=== PATIENT | male | born 1955 | race Caucasian/White ===

== ENCOUNTER 2016-12-11 14:53 | Inpatient (IN) | payer OTHER ==
[~2016-12-11] VITALS: Ht 170.2 cm; Wt 68.0 kg
[~2016-12-11 14:53] MED LIST: NAPROXEN500 M2 PO; PANTOPRAZOLE SO40 MG PO; PERCOCET 5-3251 EACH PO; TRAMADOL50 MG PO
--- NOTE | 2016-12-11 14:55 | NUR ---
PT BIBA FROM HOME FOR ALTERED MENTAL STATUS & ETOH USE WITH PERIODS OF APNEA. PT WAS AT THE BAR TODAY, DRANK WHISKEY, AND THEN DROVE HOME. 1 HOUR AFTER BEING HOME PT BEGAN TO C/O SOB. CALLED 911. UPON EMS ARRIVAL TO PT'S HOME PT WAS ALERT WITH PINPOINT PUPILS, AND PERIODS OF APNEA. PT RECEIVED INTRANASAL NARCAN WITH NO EFFECT. PT ADMITTED TO EMS THAT HE OCCASIONALLY SMOKES CRACK. PT ARRIVES UNREPONSIVE TO PAINFUL/VERBAL STIMULI. PT HAS PRE-HOSP TO [facility]. #2O EST TO . DR FUNEZ IN FOR EVAL UPON PT'S ARRIVAL TO ROOM. CHANGED INTO GOWN. PLACED ON MONITOR.
--- NOTE | 2016-12-11 15:00 | NUR ---
MEDICATED IV NARCAN PER EMAR WITH MINIMAL EFFECT. SECURITY AT BEDSIDE TO WAND PT AND PT'S BELONGINGS. AT BEDSIDE. PT OCCASSIONALY TALKING GARBLED SPEECH, SAYING "JUST LET ME SLEEP".
--- NOTE | 2016-12-11 15:12 | ED GENERAL ADULT ---
History of Present Illness General Chief Complaint: Altered Mental Status Stated Complaint: BIBA AMS Source: patient Exam Limitations: not alert/orientated, clinical condition, poor historian Vital Signs & Intake/Output Vital Signs & Intake/Output Vital Signs Date Time Temp Pulse Resp B/P B/P Pulse O2 O2 Flow FiO2 Mean Ox Delivery Rate 12/11 1830 98.0 76 16 114/76 12/11 1806 97 Room Air 12/11 1802 84 16 114/76 98 Room Air 12/11 1711 98.8 68 17 91/55 94 Room Air 12/11 1629 80 18 122/58 95 Nasal 2.0L Cannula 12/11 1535 95 Nasal 2.0L Cannula 12/11 1516 81 26 133/71 95 Nasal 3.0L Cannula 12/11 1454 98.7 78 16 157/81 96 Room Air Allergies Coded Allergies: venom-honey bee (bee venom (honey bee)) (ANAPHYLAXIS 12/11/16) morphine (VOMITING 11/05/15) Reconcile Medications Albuterol Sulfate (Proair Hfa) 90 MCG HFA.AER.AD 2 PUF INH AD PRN EMPHYSEMA ( Reported) Lisinopril 20 MG TABLET 1 TAB PO DAILY BP (Reported) Pantoprazole Sodium 40 MG TABLET.DR 1 TAB PO DAILY GI (Reported) Triage Nurses Notes Reviewed? yes Onset: Abrupt Duration: hour(s): Timing: recent history HPI: 12/11/16 4 pm This is a 61-year-old man who presents to the emergency department unresponsive. According to EMS and the patient's he was drinking at a bar today. He drove home and was intoxicated. Shortly after he became unresponsive. He did have miotic pupils and was given Narcan in the field. There is no focal weakness. He has intermittent periods of bradyapena. Says the symptoms were abrupt, the duration is really unknown, the severity significant; as his symptoms required him to come to the emergency department by ambulance. Past History Travel History Traveled to [place] past 21 day No Medical History Any Pertinent Medical History? see below for history Cardiovascular: hypertension, hyperlipidemia Gastrointestinal: GERD, peptic ulcer disease Surgical History Surgical History: non-contributory Psychosocial History Who do you live with Family Services at Home None What is your primary language [place] Tobacco Use: UN ETOH Use: 5 Illicit Drug Use: UTD Family History Hx Contributory? No Review of Systems Review of Systems Constitutional: Denies: fever. EENTM: Reports: no symptoms. Respiratory: Reports: see HPI. Cardiovascular: Denies: chest pain. GI: Reports: no symptoms. Genitourinary: Reports: no symptoms. Musculoskeletal: Reports: no symptoms. Skin: Reports: no symptoms. Neurological/Psychological: Reports: confusion. Hematologic/Endocrine: Denies: bruising, bleeding. Physical Exam Physical Exam General Appearance: well developed/nourished, RESPONDS TO PAIN Head: atraumatic Eyes: Bilateral: PERRL, EOMI. Ears, Nose, Throat: normal pharynx Neck: normal inspection, supple Respiratory: normal breath sounds, chest non-tender, BRADYPENA Cardiovascular: regular rate/rhythm Peripheral Pulses: 4+ radial (R), 4+ radial (L) Back: decreased range of motion Extremities: pedal edema Neurologic/Psych: RESPONDS TO PAIN Skin: intact, normal color, warm/dry Core Measures ACS in differential dx? No CVA/TIA Diagnosis: No Severe Sepsis Present: No Septic Shock Present: No Progress Differential Diagnoses I considered the following diagnoses in my evaluation of the patient: [Alcohol intoxication, substance abuse, TIA, CVA, sepsis] Plan of Care: Orders Procedure Date/time Status Heart Healthy Diet 12/12 B Active Patient Data 12/11 1915 Active Admit to inpatient 12/11 1848 Active Code Status 12/11 1848 Active CIWA 12/11 1830 Active Continuous Observation Monitor 12/11 1543 Active URINE DRUG SCREEN FOR ER ONLY 12/11 1515 Complete ACETOMINOPHEN 12/11 1515 Complete TROPONIN LEVEL 12/11 1515 Complete SALICYLATE 12/11 1515 Complete ETHANOL 12/11 1515 Complete COMPREHENSIVE METABOLIC PANEL 12/11 1515 Complete CBC WITHOUT DIFFERENTIAL 12/11 1515 Complete Intake & Output 12/11 1456 Active EKG 12/11 1454 Active Laboratory Tests 12/11/16 1630: Urine Opiates Screen < 100.00, Methadone Screen < 40, Barbiturate Screen < 60, Ur Phencyclidine Scrn < 6.00, Amphetamines Screen < 100, U Benzodiazepines Scrn 85, Urine Cocaine Screen > 1000 H, Urine Cannabis Screen 66.00 H 12/11/16 1520: Anion Gap 13, Estimated GFR 29 L, BUN/Creatinine Ratio 14.8, Glucose 94, Calcium 9.2, Total Bilirubin 0.3, AST 19, ALT 25, Alkaline Phosphatase 58, Troponin I < 0.01, Total Protein 6.7, Albumin 3.9, Globulin 2.8, Albumin/ Globulin Ratio 1.4, CBC w Diff NO MAN DIFF REQ, RBC 3.97 L, MCV 88.2, MCH 29.5, RDW 13.9, MPV 9.6, Gran % 63.7, Lymphocytes % 24.9, Monocytes % 8.2, Eosinophils % 2.5, Basophils % 0.7, Absolute Granulocytes 4.2, Absolute Lymphocytes 1.7, Absolute Monocytes 0.5, Absolute Eosinophils 0.2, Absolute Basophils 0, PUBS MCHC 33.5, Salicylates < 1.0, Acetaminophen < 10.0 L, Serum Alcohol 246.0 Initial ED EKG: NSR Prior EKG: unchanged Comments: PATIENT: SHANIQUE MORENO PRESENT AGE: 61 PATIENT ACCOUNT NO: [id number] : 56 LOCATION: [facility] ORDERING PHYSICIAN: VEL FUNEZ DO SERVICE DATE: 12/11/16 EXAM TYPE: CAT - CT HEAD WO IV CONTRAST EXAMINATION: CT HEAD WITHOUT CONTRAST CLINICAL INFORMATION: Altered mental status. COMPARISON: No relevant prior studies are available for comparison. TECHNIQUE: Contiguous axial imaging was performed from the skull base to vertex without intravenous administration of contrast. DLP: 879.77 mGy-cm FINDINGS: There is no evidence of acute intracranial hemorrhage or territorial infarction. No abnormal mass effect or midline shift is seen. Jerry to white matter differentiation is well preserved. No extra-axial fluid collections are identified. The ventricles are normal in size. There is mild prominence of the sulci. There is mild hypoattenuation of the periventricular white matter, which could represent chronic small vessel ischemic disease. The osseous structures and soft tissues are normal. The mastoid air cells and visualized portions of the paranasal sinuses are well aerated. IMPRESSION: 1. No acute intracranial hemorrhage or mass effect. 2. Mild prominence of the sulci and mild hypoattenuation of the periventricular white matter, which may represent chronic small vessel ischemic disease. If the patient's symptomatology continues an MRI scan could be considered if patient is an appropriate candidate and there are no contraindications to MRI. DICTATED BY: FARZANA DARLING MD DATE/TIME DICTATED:12/11/161532 RAC SPECIALIST:DEB DATE/TIME TRANSCRIBED:12/11/161532 CONFIDENTIAL, DO NOT COPY WITHOUT APPROPRIATE AUTHORIZATION. <Electronically signed in Other Vendor System> SIGNED BY: FARZANA DARLING MD 1544 Departure Departure Disposition: STILL A PATIENT Condition: Stable Clinical Impression Primary Impression: EL (acute kidney injury) Secondary Impressions: Altered mental status, TIA (transient ischemic attack) Referrals: TREY SPRAGUE,FABRICIO Espinosa (PCP/Family) Departure Forms: Customer Survey General Discharge Information Comments Patient was treated with IV fluids, METAL STAUS IMPROVED. Admission Note Spoke With: ANA RENDON MD Documentation of Exam: Documentation of any treatments & extenuating circumstances including Concerns Regarding Discharge (functional status, medication knowledge or non-compliance, living conditions, etc.) that warrant an admission rather than observation: [He needs admission for IV fluids, serial neuro exams, serial troponins, serial EKG, repeat kidney function] Critical Care Note Critical Care Note Critical Care Time: 30-74 min
--- NOTE | 2016-12-11 15:18 | NUR ---
REPORT HANDED OFF TO BERNARDINO WEBSTER.
--- NOTE | 2016-12-11 15:20 | NUR ---
REPORT RECIEVED FROM JENNIFER LEBRON. PATIENT TO CT SCAN OFF CM - OK PER DR. FUNEZ. KIMBERLY PEÑA ACCOMPANIED PATIENT.
--- NOTE | 2016-12-11 15:32 | NUR ---
PATIENT RETURNED FROM CT SCAN. 1 L NS INFUSING AT 500 ML/HR ORDERED. SITTER AT BEDSIDE
[2016-12-11 15:33] LABS: ABSOLUTE BASOPHIL COUNT 0 /CUMM (0.0-0.2); ABSOLUTE EOSINOPHIL COUNT 0.2 /CUMM (0.0-0.7); ABSOLUTE GRANULOCYTE CT 4.2 /CUMM (1.4-6.5); ABSOLUTE LYMPH COUNT 1.7 /CUMM (1.2-3.4); ABSOLUTE MONOCYTE COUNT 0.5 /CUMM (0.10-0.60); BASOPHIL % 0.7 % (0.0-2.0); EOSINOPHIL % 2.5 % (0-5); GRANULOCYTE % 63.7 % (42.2-75.2); MEAN CORPUSCULAR HGB 29.5 PG (27.0-31.0); MEAN CORPUSCULAR HGB CONC 33.5 G/DL (33.0-37.0); MEAN CORPUSCULAR VOLUME 88.2 FL (80.0-94.0); MEAN PLATELET VOLUME 9.6 FL (7.4-10.4); PLATELET COUNT 181 /CUMM (130-400); RBC DISTRIBUTION WIDTH 13.9 % (11.5-14.5); RED BLOOD CELL CT 3.97 /CUMM (4.70-6.10); WHITE BLOOD CELL COUNT 6.7 /CUMM (4.8-10.8)
--- NOTE | 2016-12-11 15:34 | NUR ---
1 BELONGINGS BAG GIVEN TO SECURITY, PATIENTS GLASSES IN BAG PATIENT'S WALLET GIVEN TO /SON, OK PER PT
--- NOTE | 2016-12-11 15:44 | CT SCAN REPORT ---
EXAMINATION: CT HEAD WITHOUT CONTRAST CLINICAL INFORMATION: Altered mental status. COMPARISON: No relevant prior studies are available for comparison. TECHNIQUE: Contiguous axial imaging was performed from the skull base to vertex without intravenous administration of contrast. DLP: 879.77 mGy-cm FINDINGS: There is no evidence of acute intracranial hemorrhage or territorial infarction. No abnormal mass effect or midline shift is seen. Jerry to white matter differentiation is well preserved. No extra-axial fluid collections are identified. The ventricles are normal in size. There is mild prominence of the sulci. There is mild hypoattenuation of the periventricular white matter, which could represent chronic small vessel ischemic disease. The osseous structures and soft tissues are normal. The mastoid air cells and visualized portions of the paranasal sinuses are well aerated. IMPRESSION: 1. No acute intracranial hemorrhage or mass effect. 2. Mild prominence of the sulci and mild hypoattenuation of the periventricular white matter, which may represent chronic small vessel ischemic disease. If the patient's symptomatology continues an MRI scan could be considered if patient is an appropriate candidate and there are no contraindications to MRI.
--- NOTE | 2016-12-11 15:55 | RADIOLOGY REPORT ---
EXAMINATION: XR CHEST PORTABLE CLINICAL INFORMATION: Altered mental status. COMPARISON: Multiple priors, most recent chest radiograph dated 11/05/2015. TECHNIQUE: Portable frontal view of the chest was obtained. FINDINGS: Mild bibasilar atelectasis. No focal airspace consolidation. No pleural effusion or pneumothorax. Stable cardiomediastinal silhouette. No acute osseous abnormality. IMPRESSION: Mild bibasilar atelectasis.
--- NOTE | 2016-12-11 16:20 | NUR ---
PT UNABLE TO GIVE URINE SAMPLE AT THIS TIME, MORE EASILY AROUSABLE. STATES WILL TRY AGAIN IN 15 MINS.
--- NOTE | 2016-12-11 16:42 | NUR ---
PT VOIDED 500 ML CLEAR URINE INTO URINAL. UTOX SENT WITH UA/CASTER HELPER TUBES REPORT GIVEN TO SAMUEL LEBRON, PT MOVED TO ROOM 2 WITH SITTER
--- NOTE | 2016-12-11 16:56 | NUR ---
DR FUNEZ IN ROOM TO REEVALUATE PATIENT. FAMILY CALLING FOR UPDATES AND MD INFORMED TO PROVIDE UPDATE
[2016-12-11] MEDS ORDERED: PROAIR HFA8.5 GM INH (17:18)
[2016-12-11] MEDS ORDERED: PANTOPRAZOLE SO40 M1 PO (17:18)
[2016-12-11] MEDS ORDERED: LISINOPRIL20 M1 PO (17:18)
--- NOTE | 2016-12-11 17:54 | NUR ---
DR FUNEZ IN ROOM FOR REEVAL AND TO DISCUSS PLAN
--- NOTE | 2016-12-11 18:04 | NUR ---
FOOD TRAY ORDERED PER PT REQUEST
--- NOTE | 2016-12-11 18:15 | NUR ---
PT GIVEN FOOD TRAY AND ICE WATER. REMAINS STABLE, OFFERS NO COMPLAINTS
[2016-12-11 18:30] VITALS: BP 114/76
--- NOTE | 2016-12-11 19:23 | NUR ---
ASSUMED CARE OF PT FROM BERNARDINO BAKER. 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 AWAITING TELE ADMISSION AT THIS TIME.
--- NOTE | 2016-12-11 20:02 | NUR ---
MOD PAGED REGARDING SITTER ORDER FOR ADMISSION
[2016-12-11 20:26] VITALS: BP 118/73
--- NOTE | 2016-12-11 20:36 | NUR ---
PT GOING TO ROOM 182-1.
--- NOTE | 2016-12-11 20:46 | NUR ---
HOUSE STAFF AT BEDSIDE FOR EVAL.
--- NOTE | 2016-12-11 21:03 | NUR ---
REPORT GIVEN TO BERNARDINO FUENTES
[2016-12-11 21:38] VITALS: BP 130/80
--- NOTE | 2016-12-11 22:10 | History & Physical ---
NEENA DESHPANDE 12/11/16 2209: General Information and HPI MD Statement: I have seen and personally examined SHANIQUE RAMOS and documented this H&P. The patient is a 61 year old M who presented with a patient stated chief complaint of unresponsiveness at home. Source of Information: patient, family, old records Exam Limitations: no limitations History of Present Illness: Mr Ramos is a 61-year-old man who was known to be in his usual state of health until this a.m. He has a past medical history of hypertension, hyperlipidemia, emphysema, peptic ulcer disease. He was brought to [facility] after he became unresponsive at home after a binge alcoholic drink in the afternoon on the day of ER admission. As per the patient, he drank heavily (10-12 x beer, hard liquor shots) all morning at a bar, and after reaching home he was unresponsive. He did not have any prodromal symptoms before becoming unresponsive, but the who was present at the time of the event reported that the patient complained of chest pain. Episode lasted for less than 30 minutes, with no loss of bladder bowel function, seizures. After regaining consciousness, he was aware of his surroundings, and did not report any headache, lightheadedness, confusion, vision changes, any neurological symptoms. The character of chest pain could not be a certain, as the patient did not recollect his symptomatology. No palpitations, shortness of breath, pedal edema, orthopnea were noted. No fatigue, unintentional weight loss was reported. Reported occasional bright red bleeding per rectum, which he attributes it to external hemorrhoids. No abdominal pain, fever, tenesmus, diarrhea were noted. Last colonoscopy found colonic polyp, and was advised to follow up every 3 years with a repeat colonoscopy. 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 Daily alcohol use-4-5 x beers. No IVDA. Last cocaine use 3 days ago, occasional marijuana use. Family history significant for coronary artery disease in brother and father (age less than 50 years). History of colon cancer in mother. 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 FATHER (CAD( < 50 yrs)). MOTHER Psychosocial History Where do you live? Home Services at Home: None Smoking Status: Former Smoker ETOH Use: heavy use Illicit Drug Use: UTD Review of Systems Review of Systems Constitutional: Denies: see HPI, chills, fever, weakness. EENTM: Denies: blurred vision, double vision, hearing changes. Cardiovascular: Reports: chest pain, peripheral edema. Denies: edema, orthopena, palpitations, syncope. Respiratory: Denies: cough, short of breath. GI: Reports: bloody stool. Denies: abdominal pain, diarrhea, melena, vomiting. Genitourinary: Denies: discharge. Musculoskeletal: Denies: back pain, joint pain. Skin: Denies: change in skin color, change in hair/nails. Neurological/Psychological: Denies: anxiety, confusion, headache, numbness, paresthesia. Exam & Diagnostic Data Last 24 Hrs of Vital Signs/I&O Vital Signs Date Time Temp Pulse Resp B/P B/P Pulse O2 O2 Flow FiO2 Mean Ox Delivery Rate 12/11 2137 97.8 81 20 130/80 95 12/11 2130 Room Air 12/11 2025 98.6 78 18 118/73 12/11 2024 98.6 78 18 11873 97 Room Air 12/11 1830 98.0 76 16 114/76 12/11 1806 97 Room Air 12/11 1802 84 16 114/76 98 Room Air 12/11 1711 98.8 68 17 91/55 94 Room Air 12/11 1629 80 18 122/58 95 Nasal 2.0L Cannula 12/11 1535 95 Nasal 2.0L Cannula 12/11 1516 81 26 133/71 95 Nasal 3.0L Cannula 12/11 1454 98.7 78 16 157/81 96 Room Air Intake & Output 12/12 0800 12/12 0000 12/11 1600 Intake Total 0 Output Total 400 Balance -400 Intake, IV 0 Intake, Oral 0 Number 0 Bowel Movements Output, Urine 400 Patient 150 lb Weight Weight Reported by Patient Measurement Method Physical Exam General Appearance Alert, Oriented X3, Cooperative, No Acute Distress Skin No Rashes, No Breakdown, No Significant Lesion Skin Temp/Moisture Exam: Warm/Dry Sepsis Skin Exam (color): Normal for Ethnicity HEENT Atraumatic, PERRLA, EOMI Neck Supple, No JVD, No thryomegaly, +2 Carotid Pulse wo Bruit, No LAD Lymphatic submandibular lnpathy 1.5 cm Cardiovascular Regular Rate, Normal S1, Normal S2, No Murmurs Lungs Normal Air Movement, basal crackles Abdomen Normal Bowel Sounds, Soft, No Tenderness, No Hepatospenomegaly Neurological Normal Speech, Strength at 5/5 X4 Ext, Normal Tone, Sensation Intact, Cranial Nerves 3-12 NL, Reflexes 2+ Extremities No Cyanosis, No Edema, Normal Pulses Vascular Normal Pulses, Pulses Symmetrical Sepsis Peripheral Pulse Location: Dorsalis Pedis Sepsis Peripheral Pulse Exam: Normal Sepsis Cap Refill Exam: <2 Sec Body Front and Back (Adult) 1) hemorrhodal surgery scar Last 24 Hrs of Labs/[place]: Laboratory Tests 12/11/16 2258: Troponin I < 0.01 12/11/16 1630: Urine Opiates Screen < 100.00, Methadone Screen < 40, Barbiturate Screen < 60, Ur Phencyclidine Scrn < 6.00, Amphetamines Screen < 100, U Benzodiazepines Scrn 85, Urine Cocaine Screen > 1000 H, Urine Cannabis Screen 66.00 H, Ur Random Creatinine 46.1, Ur Random Sodium 76, Ur Random Potassium 11.7, Fraction Sodium Excret 2.7 H 12/11/16 1520: Anion Gap 13, Estimated GFR 29 L, BUN/Creatinine Ratio 14.8, Glucose 94, Hemoglobin A1c Pending, Calcium 9.2, Magnesium 2.4 H, Iron 99, TIBC 315, Ferritin 89.1, Total Bilirubin 0.3, AST 19, ALT 25, Alkaline Phosphatase 58, Creatine Kinase 209 H, Troponin I < 0.01, Total Protein 6.7, Albumin 3.9, Globulin 2.8, Albumin/Globulin Ratio 1.4, CBC w Diff NO MAN DIFF REQ, RBC 3.97 L, MCV 88.2, MCH 29.5, RDW 13.9, MPV 9.6, Gran % 63.7, Lymphocytes % 24.9, Monocytes % 8.2, Eosinophils % 2.5, Basophils % 0.7, Absolute Granulocytes 4.2, Absolute Lymphocytes 1.7, Absolute Monocytes 0.5, Absolute Eosinophils 0.2, Absolute Basophils 0, PUBS MCHC 33.5, Salicylates < 1.0, Acetaminophen < 10.0 L , Serum Alcohol 246.0 Diagnostic Data EKG Results Normal sinus rhythm Normal axis No ST TW changes CXR Results Mild bibasilar atelectasis. Other Results CAT - CT HEAD WO IV CONTRAST 1. No acute intracranial hemorrhage or mass effect. 2. Mild prominence of the sulci and mild hypoattenuation of the periventricular white matter, which may represent chronic small vessel ischemic disease. Assessment/Plan Assessment: His middle-aged man with a past history of heavy alcohol use, smoking, hypertension, family history of heart disease (multiple risk factors for coronary disease) is being evaluated for unresponsiveness. At the time of admission, vitals-impression 98.7, pulse rate 78, respirations 16 , blood pressure 157/81, pulse ox 96% on room air. Lab findings indicated no leukocytosis, anemia (hemoglobin 11.7-Baseline 15.3 mg/dl in 10/2015), platelets 181. Normal electrolytes, abnormal kidney function BUN 34, serum creatinine 2.3 ( baseline 0.9), FENa 2.7( kidney injury ? heavy drug use ). Liver function test within normal limits. Cardiac enzymes-within normal limits. U tox was positive for cocaine and cannabis. EKG revealed normal sinus rhythm, normal axis, nonspecific ST changes. Differential diagnoses: #1 syncope #3 arrhythmia #4 drug overdose #5 acute kidney injury Below is the problem list and plan: #1 syncope-exact cause is uncertain at this time, but alcohol/drug use seems more likely. However, cardiac cause needs to be ruled out. Patient has a strong family history and other risk factors. Serial cardiac enzymes and electrocardiograms. May need a stress test as an outpatient. Cardiac consult in the a.m. if the tests are abnormal. History of chest pain is unclear, and hence no aspirin was given at this time. Continue to monitor the patient on telemetry. CT head was unremarkable. #2 Anemia-an acute drop in H&H 15.3-->11.7. Hemoccult negative. Monitor for any sudden drop. We will need a follow-up with the GI as an outpatient. Iron studies. #3 alcohol use, cocaine use-Ativan as per CIWA protocol, and standing order. Avoid all beta blockers. Monitor vitals closely. #4 acute kidney injury-likely from alcohol/drug use. Creatinine kinase slightly elevated; recheck in the a.m. Cocaine is known to cause myoglobulinuria. Elevated FENa. Fluids. #5 history of GERD/Aguilera's-continue home dose of PPI. #6 DVT prophylaxis-mechanical. As Ranked By This Provider Problem List: 1. EL (acute kidney injury) 2. Alcohol intoxication 3. Altered mental status Core Measures/Miscellaneous Acute Coronary Syndrome ACS Diagnosis: No Cerebrovascular Accident CVA/TIA Diagnosis: No Congestive Heart Failure CHF Diagnosis: No VTE (View Protocol) VTE Risk Factors: Age > 40 No [facility] VTE prophylaxis d/t: No contraindications No VTE Pharm Prophylaxis d/t: No contraindications VTE Diagnosis: No VTE Type: NONE VTE Confirmed by (Test): NONE Sepsis (View Protocol) Severe Sepsis Present: No Septic Shock Septic Shock Present: No Miscellaneous Documentation Attending Case Discussed With: ANA RENDON MD Primary Care Physician: FABRICIO YANG MD Patient sees these Specialists Dr. Wolf Level of Patient Care: Telemetry JAYSHREE SPRAGUE,[facility] 12/11/16 2416: General Information and HPI Allergies/Medications Home Med list Albuterol Sulfate (Proair Hfa) 90 MCG HFA.AER.AD 2 PUF INH AD PRN EMPHYSEMA ( Reported) Amlodipine Besylate 5 MG TABLET 1 TAB PO DAILY Hypertension Folic Acid 1 MG TABLET 1 TAB PO DAILY SUPPLEMENT Multivitamin (One Daily Multivitamin) 1 EACH TABLET 1 TAB PO DAILY SUPPLEMENT Pantoprazole Sodium 40 MG TABLET.DR 1 TAB PO DAILY GI (Reported) Thiamine HCl (Vitamin B-1) 100 MG TABLET 1 TAB PO DAILY SUPPLEMENT Resident Review Statement Resident Statement: examined this patient, discussed with process engineering intern, agreed with process engineering intern, discussed with family Other Findings: The patient is a 61-year-old man with a past medical history of hypertension, GERD, peptic ulcer disease, emphysema, and lower GI bleeding from hemorrhoids. He was brought in by ambulance today after being found unresponsive at home by his . According to his the patient has been having headaches recently for the past 1-2 weeks. He went to a bar this morning on 9 AM and drank 10-12 beers and over 5 shots of whiskey up to 2 PM this afternoon after which she returned home. 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 Shortly after arriving home she saw him lay down on his bed. Some minutes later, she went to arouse him and found him to be unresponsive. He subsequently became semiconscious and was going in and out of consciousness with his eyes half open. At this time he began to complain of severe retrosternal chest pain and shortness of breath. This chest pain episode lasted for about 1 hour before she called 911, and he was brought to the hospital. EMS at the scene said that his pupils were miotic and he was having bradypnea. He received 1 dose of Narcan in the field. Subsequently became more aroused in the ER and is now alert and awake. He does admit to using cocaine, however he stated that his last use was sniffing a single line 3 days ago. Vital signs on admission in the ER showed a temperature of 98.7 Fahrenheit, pulse of 78 bpm, respiratory rate of 16/min, blood pressure 157/81 mmhg, pulse oximetry of 96 on room air. Physical Exam General: Appearance Alert, oriented 3, not in distress HEENT: EOMI, Mucous Membranes moist Neck: 1.5 cm 1.5 cm soft mobile left submandibular lymph node, no thyromegaly Cardiovascular: Normal S1, Normal S2, no murmurs Lungs: Normal Air Movement, Diminshed breath sounds in the lung bases bilaterally with few fine crepitations Abdomen: Soft, No Tenderness, Normal Bowel Sounds Rectal: Normal rectal tone, stool guaiac negative Back: No CVA tenderness Neurological: Nomal Speech, Strength 5/5 in bilateral lower and upper limbs, no tremor Extremities: No pedal edema Vascular: Pulses Symmetrical, Skin is warm to touch Labs at admission showed CBC with WBC of 6700, hemoglobin of 11.7 g/dL, hematocrit of 35%, platelet count of 181,000. Chemistries showed sodium of 143, potassium of 4.1, creatinine of 2.3 mg/DL, glucose 94 mg per DL, magnesium 2.4, creatinine kinase 29. Total bili AST and ALT were all normal at 0.3, 19 and 25 respectively. Alkaline phosphatase was normal at 58. Urine toxicology was positive for cocaine greater than 1000 ng/ml, cannabis at 68 and serum alcohol 246. Assessment This patient presents with syncope shortly after an alcohol binge with attendant recent history of cocaine use. He also confesses to having some chest pain shortly after the syncopal episode but denies chest pain at present. She is head CT showed no acute lesion. His symptoms are concerning for an acute coronary syndrome given his recent cocaine use (He probably used cocaine today, even though he denies this). Otherwise a syncope from cocaine overdose is also a possibility. Acute alcohol intoxication could also be responsible for these symptoms. His did admit to prior episodes of chest discomfort resulting in ED visits in the past which were attributed to GERD. However he should be monitored on telemetry for any cardiac events. In addition we will manage his alcohol withdrawal with as needed and standing Ativan. His creatinine is elevated and his acute kidney injury is likely prerenal due to dehydration, however cocaine-induced acue tubular necrosis or acute interstitial neprhritis must be considered in the differential. Problem list 1. Syncope 2. Alcohol withdrawal and cocaine abuse for detox 3. Acute kidney injury 4. Normocytic anemia 5. Hypertension 6. Emphysema 7. Left submandibular lymph node Plan 1. Syncope * Admit to telemetry for monitoring * Serial EKGs 3 and troponin 3 * Consider echocardiogram in the AM * Monitor blood pressure heart rate closely 2. Alcohol withdrawal and cocaine abuse for detox * IV Ativan as per CIWA protocol * By mouth Ativan 2 mg every 6 hours standing * IV banana bag 1 then continue with by mouth thiamine, B12 and folate 3. Acute kidney injury * Hydrate with IV banana bag 1 then we will continue hydration with IV normal saline at 75 mL an hour * Add on Urinalysis and Urine electrolytes/FENA to investigte cocaine-induced acue tubular necrosis or acute interstitial neprhritis * Repeat BEP in the morning and monitor renal function * Monitor fluid input-output closely 4. Normocytic anemia * Hemoglobin has dropped since last measured in 2015 * Stools were guaiac-negative * We'll send iron TIBC and ferritin with vitamin B-12 5. Hypertension * Continue by mouth lisinopril 20 mg daily * Monitor blood pressure closely 6. Emphysema * TRC evaluation for possible nebulizer therapy * Continue albuterol inhaler every 4 hours when necessary as needed for shortness of breath 7. Left submandibular lymph node * Consider inpatient or outpatient ultrasound of neck followed by lymph node biopsy Pain pathway:. Tylenol 650 mg every 6 when necessary for mild pain, by mouth Motrin 600 mg every 6 when necessary for moderate pain DVT prophylaxis with Alps Patient is full code ANA RENDON 12/12/16 0401: Attending MD Review Statement Attending Statement Attending MD Statement: examined this patient, discuss w/resident/PA/QUALITY SYSTEMS MANAGER, agreed w/resident/PA/QUALITY SYSTEMS MANAGER, reviewed EMR data (avail), reviewed images, amended to note Attending Assessment/Plan: CC: Passing out, CP PMH: HTN, COPD, colonic polyps, hemorrhoids Patient was brought in ER through EMS for altered mental status. History is partly provided by patient and his . Patient states that he had breakfast and then he went out to drink beer, he drank few of them and then few shots of vodka. He also endorses cocaine use, then he drove home and he was feeling uneasy, not well so his called EMS. According to his patient came home , directly went to bed, when in few minutes she was checking on him he was not responding, he was in and out of his sensorium and in between complaining of chest pain. When he was not responding appropriately she called EMS. Patient received a dose of Narcan in ER and 1 L normal saline bolus. 14 point ROS unremarkable except patient has intermittent bright red blood per rectum, last episode 3 days back. Patient states that he has multiple polyps in his colon and gets frequent colonoscopies. Vitals: Afebrile, pulse in 70s, RR 16, blood pressure 157/81 transiently went to 91/55 improved to 114/76, saturating well on room air On exam: A O 3, cooperative, no acute distress, neck supple, JVD normal, no lymphadenopathy, mucosa dry, no focal neurological deficit, no dependent edema, no obvious skin rashes or inflammation CVS: S1-S2, RRR. RS: Clear to auscultate bilaterally. Abdomen: Soft, NT, ND, bowel sounds present. Labs: Hemoglobin 11.1, MCV 88.2, otherwise CBC unremarkable. Bicarbonate 19, anion gap 13, BUN 34, creatinine 2.3, LFT unremarkable, troponin less than 0.01, U tox positive for cocaine and THC Serum alcohol 246 Imaging: Head CT: 1. No acute intracranial hemorrhage or mass effect. 2. Mild prominence of the sulci and mild hypoattenuation of the periventricular white matter, which may represent chronic small vessel ischemic disease. CXR: Mild bibasilar atelectasis. A and P 61-year-old male with a past medical history significant for HTN, COPD, alcoholism, lower GI bleed presented to ER after possible syncope. History is provided by patient's who stated that patient was not responding at home, she did not notice any seizure-like activity, bladder or bowel incontinence. Patient was complaining of chest pain. Patient had high alcohol level at arrival , received a dose of Narcan and IV hydration. eventually patient was more arousable. It is likely that patient may have lost consciousness secondary to alcoholism but other causes of syncope should be ruled out given his age and comorbidities. He also endorses cocaine use and had chest pain, ACS should be ruled out. Creatinine is elevated and hemoglobin trending down as compared to previous labs. + Syncope + Chest pain + Alcoholism + Cocaine abuse + Acute kidney injury + Metabolic acidosis + History of HTN, COPD, lower GI bleed - Admit to telemetry - Continuous telemetry monitoring - Serial troponin and EKG - Aspirin 81 mg - Continue home doses of antihypertensives - Avoid beta dorothy - Gentle hydration, high-dose thiamine - Scheduled Ativan 2 mg by mouth every 8 hour and when necessary Ativan according to CIWA score - Replace electrolytes - Strict I's and O's - Post void bladder scan - Check CPK today and tomorrow - Check orthostatic vitals in a.m. - No obvious murmurs on auscultation: No 2-D echo at this time for syncope workup - When necessary nebulization - DVT prophylaxis with heparin
--- NOTE | 2016-12-12 04:05 | Admission Certification ---
Admission Certification Certification Statement - As attending physician, I certify that at the time of - admission, based on clinical presentation, severity of - symptoms, need for further diagnostic testing and - therapeutic interventions, and risk of adverse outcomes - without in-hospital treatment, in my clinical assessment, - this patient requires an acute hospital stay for a minimum - of two nights or longer. I have also considered psychsocial - factors such as support system, advanced age, financial - issues, cognitive issues, and failed out-patient treatments, - past re-admission history, safety of patient, and lack of - compliance as applicable. Specific rationale supporting this admission is: syncope, acute kidney injury
[2016-12-12 08:00] VITALS: BP 156/90
[2016-12-12 08:01] VITALS: BP 156/90
[2016-12-12 08:38] LABS: ABSOLUTE BASOPHIL COUNT 0 /CUMM (0.0-0.2); ABSOLUTE EOSINOPHIL COUNT 0.2 /CUMM (0.0-0.7); ABSOLUTE GRANULOCYTE CT 3.7 /CUMM (1.4-6.5); ABSOLUTE MONOCYTE COUNT 0.5 /CUMM (0.10-0.60); BASOPHIL % 0.7 % (0.0-2.0); EOSINOPHIL % 2.9 % (0-5); HEMATOCRIT 34.3 % (42-52); MEAN CORPUSCULAR HGB 29.9 PG (27.0-31.0); MEAN CORPUSCULAR HGB CONC 33.3 G/DL (33.0-37.0); MEAN CORPUSCULAR VOLUME 89.6 FL (80.0-94.0); MEAN PLATELET VOLUME 9.9 FL (7.4-10.4); PLATELET COUNT 158 /CUMM (130-400); RBC DISTRIBUTION WIDTH 14.3 % (11.5-14.5); RED BLOOD CELL CT 3.83 /CUMM (4.70-6.10); WHITE BLOOD CELL COUNT 5.4 /CUMM (4.8-10.8)
--- NOTE | 2016-12-12 10:59 | PN- Housestaff ---
LOWELL MCDONALD 12/12/16 1045: Subjective Follow-up For: AMS Alcohol abuse Chest pain Acute kidney injury Subjective: This morning patient is alert, awake and oriented. He is complaining of breathing heavily. He is on room air saturating 93%. Denies any chest pain or discomfort, dizziness or lightheadedness, nausea, vomiting, abdominal pain, urinary symptoms, diarrhea or constipation. Review of Systems Constitutional: Reports: see HPI. Objective Last 24 Hrs of Vital Signs/I&O Vital Signs Date Time Temp Pulse Resp B/P B/P Pulse O2 O2 Flow FiO2 Mean Ox Delivery Rate 12/12 1004 Room Air 12/12 0921 93 Room Air 12/12 0801 97.9 81 14 156/90 94 Room Air 12/11 213 97.8 81 20 130/80 95 12/11 2130 Room Air 12/11 2025 98.6 78 18 118/73 12/11 202 98.6 78 18 118/73 97 Room Air 12/11 1830 98.0 76 16 114/76 12/11 1806 97 Room Air 12/11 1802 84 16 114/76 98 Room Air 12/11 1711 98.8 68 17 91/55 94 Room Air 12/11 1629 80 18 122/58 95 Nasal 2.0L Cannula 12/11 1535 95 Nasal 2.0L Cannula 12/11 1516 81 26 133/71 95 Nasal 3.0L Cannula 12/11 1454 98.7 78 16 157/81 96 Room Air Intake & Output 12/12 1600 12/12 0800 12/12 0000 Intake Total 1375 0 Output Total 400 Balance 1375 -400 Intake, IV 875 0 Intake, Oral 500 0 Number 0 0 Bowel Movements Output, Urine 400 Patient 150 lb Weight Weight Reported by Patient Measurement Method Physical Exam General Appearance: Alert, Oriented X3, Cooperative, No Acute Distress Neck: Supple Cardiovascular: tachy Lungs: Clear to Auscultation Abdomen: Normal Bowel Sounds, Soft, No Tenderness Extremities: No Edema Current Medications: Current Medications Sig/Jose Start time Last Medication Dose Route Stop Time Status Admin Acetaminophen 650 MG Q6P PRN 12/11 2230 AC PO Albuterol Sulfate 3 ML BID 12/12 1000 AC 12/12 INH 0920 Albuterol Sulfate 3 ML Q4P PRN 12/12 0815 AC INH Aspirin Buffered 81 MG DAILY 12/12 1000 AC 12/12 PO 0905 Calcium Carbonate 500 MG ONCE ONE 12/11 2330 DC 12/11 PO 12/11 2331 2356 Cyanocobalamin/ 1 BAG ONCE ONE 12/11 2230 DC 12/12 Thiamine/Pyridoxine IV 12/12 0629 0022 Dextrose/Water 1,000 ML Folic Acid 1 MG DAILY 12/13 1000 AC PO Ibuprofen 600 MG Q6P PRN 12/11 2230 DC PO Lisinopril 20 MG DAILY 12/12 1000 CAN PO Lorazepam 2 MG Q6 12/12 0600 AC 12/12 PO 06 Lorazepam See Dose Q1P PRN 12/11 2230 AC Insts (1) IV Morphine Sulfate 4 MG Q4P PRN 12/11 223 DC IV Multivitamins 1 TAB DAILY 12/13 1000 AC PO Naloxone HCl 1 MG ONCE ONE 12/11 1515 DC 12/11 IV 12/11 1516 1500 Naloxone HCl 0 .STK-MED ONE 12/11 1505 DC .ROUTE Omeprazole 40 MG DAILY 12/12 1000 DC 12/12 PO 603 Omeprazole 40 MG DAILY AC 12/12 0700 AC PO Sodium Chloride 1,000 ML Q13H 12/12 1000 AC 12/12 IV 0905 Sodium Chloride 1,000 ML BOLUS ONE 12/11 1515 DC 12/11 IV 12/11 1714 1534 Thiamine HCl 100 MG DAILY 12/13 1000 AC PO Dose Instructions: (1)Lorazepam: See Admin Criteria Last 24 Hrs of Lab/Mukesh Results Last 24 Hrs of Labs/Mics: Laboratory Tests 12/12/16 0635: Anion Gap 7, Estimated GFR 39 L, BUN/Creatinine Ratio 15.0, Creatine Kinase 131 , CBC w Diff NO MAN DIFF REQ, RBC 3.83 L, MCV 89.6, MCH 29.9, RDW 14.3, MPV 9.9 , Gran % 68.0, Lymphocytes % 19.1 L, Monocytes % 9.3, Eosinophils % 2.9, Basophils % 0.7, Absolute Granulocytes 3.7, Absolute Lymphocytes 1.0 L, Absolute Monocytes 0.5, Absolute Eosinophils 0.2, Absolute Basophils 0, PUBS MCHC 33.3 12/11/16 2258: Troponin I < 0.01 12/11/16 1630: Urinalysis LIGHT H, Urine Color STRAW, Urine Clarity CLEAR, Urine pH 6.0, Ur Specific [place] 1.020, Urine Protein 100 H, Urine Ketones NEG, Urine Nitrite NEG, Urine Bilirubin NEG, Urine Urobilinogen 0.2, Ur Leukocyte Esterase NEG, Ur Microscopic SEDIMENT EXAMINED, Urine RBC 15-25 H, Urine WBC 5-10 H, Ur Epithelial Cells FEW, Urine Mucus FEW, Urine Hemoglobin LARGE H, Urine Glucose NEG 12/11/16 1630: Urine Opiates Screen < 100.00, Methadone Screen < 40, Barbiturate Screen < 60, Ur Phencyclidine Scrn < 6.00, Amphetamines Screen < 100, U Benzodiazepines Scrn 85, Urine Cocaine Screen > 1000 H, Urine Cannabis Screen 66.00 H, Ur Random Creatinine 46.1, Ur Random Sodium 76, Ur Random Potassium 11.7, Fraction Sodium Excret 2.7 H 12/11/16 1520: Anion Gap 13, Estimated GFR 29 L, BUN/Creatinine Ratio 14.8, Glucose 94, Hemoglobin A1c Pending, Calcium 9.2, Magnesium 2.4 H, Iron 99, TIBC 315, Ferritin 89.1, Total Bilirubin 0.3, AST 19, ALT 25, Alkaline Phosphatase 58, Creatine Kinase 209 H, Troponin I < 0.01, Total Protein 6.7, Albumin 3.9, Globulin 2.8, Albumin/Globulin Ratio 1.4, CBC w Diff NO MAN DIFF REQ, RBC 3.97 L, MCV 88.2, MCH 29.5, RDW 13.9, MPV 9.6, Gran % 63.7, Lymphocytes % 24.9, Monocytes % 8.2, Eosinophils % 2.5, Basophils % 0.7, Absolute Granulocytes 4.2, Absolute Lymphocytes 1.7, Absolute Monocytes 0.5, Absolute Eosinophils 0.2, Absolute Basophils 0, PUBS MCHC 33.5, Salicylates < 1.0, Acetaminophen < 10.0 L , Serum Alcohol 246.0 Orders CIWA Score (last 24 hrs): 0-1 Assessment/Plan Assessment: History 61-year-old man with past medical history of hypertension, COPD, colonic polyps and hemorrhoids. Problem list 1. Syncopal episode. Most likely due to alcohol and substance abuse vs ? cardiac 2. Chest pain. ? ACS. Negative EKGs and troponins 2 3. Alcohol and substnace abuse. On CIWA protocol and Ativan (scheduled and PRN ) 4. Acute kidney injury. FENa 2.7. likely ATN. Improving. BUN/creatinine 34/ 2.3 on admission. This morning 27/1.8 5. History of colonic polyps and hemorrhoids. Colonoscopy every 3 years. Last colonoscopy on February 2016. 6. History of BRBPR. last 2 days ago. 7. History of anemia. H&H 11.4/34.3 today. 8. Aguilera's esophagus/ Mild erosive gastritis and nonerosive duodenitis. Next EGD in February 2017. PLAN * Monitor vitals closely * Keep electrolytes within normal range * Continue CIWA protocol and Ativan as needed per CIWA * Continue scheduled Ativan and taper down 25% daily per CIWA * Continue multivitamins/thiamine/folic acid * Continue TRC nebs * Echocardiogram to rule out cardiomyopathy * Monitor kidney functions daily * Avoid nephrotoxins * gentle IV fluids for now * Lisinopril on hold because of a EL * Continue PPI * Subcutaneous heparin for DVT prophylaxis * fULL CODE Problem List: 1. EL (acute kidney injury) 2. chest pain Pain Ratin Pain Location: none Pain Goal: Pain 4 or less Pain Plan: tylenol Tomorrow's Labs & Rationales: bep DVT/Prophylaxis: pharmacological MAGALY KOCH MD 12/12/16 1429: Attending MD Review Statement Attending Statement Attending MD Statement: examined this patient, discuss w/resident/PA/INTERNAL MEDICINE HOSPITALIST, agreed w/resident/PA/INTERNAL MEDICINE HOSPITALIST, reviewed EMR data (avail), discussed with nursing, discussed with case mgmt Attending Assessment/Plan: 61-year-old male with past medical history of hypertension, COPD, alcohol use and active cocaine use who is here with EL, period of unresponsiveness that was preceded by chest pain. At this point he is stable with the EL resolving nicely with hydration. We have the sin on hold. We have an echo pending and given the chest pain that occurred before the syncope and the cocaine use will call cardiology to see him. We'll also put in a social work consult for the alcohol use and we have him on the CIWA protocol and will follow closely.
[2016-12-12 16:00] VITALS: BP 140/80
[2016-12-12 16:40] VITALS: BP 140/80
[2016-12-12 18:00] VITALS: BP 140/80
--- NOTE | 2016-12-12 19:00 | Cons- Cardiology ---
General Information and HPI Consulting Request Date of Consult: 12/12/16 Requested By: MAGALY KOCH MD Reason for Consult: Syncopal episode followed by chest pain. Source of Information: patient, family, old records Exam Limitations: poor historian History of Present Illness: Mr. 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 The patient cannot recall anything prior to his "coming to an ambulance", but does state that he then recalls experiencing anterior chest "heaviness" of 5/10 intensity without radiation or associated symptoms that lasted approximately 20 minutes before subsiding. He denies ever experiencing similar symptoms or having any history of coronary, valvular, dysrhythmic/conduction disease or cardiomyopathy. Allergies/Medications Allergies: Coded Allergies: venom-honey bee (bee venom (honey bee)) (ANAPHYLAXIS 12/11/16) morphine (VOMITING 11/05/15) Home Med List: Albuterol Sulfate (Proair Hfa) 90 MCG HFA.AER.AD 2 PUF INH AD PRN EMPHYSEMA ( Reported) Lisinopril 20 MG TABLET 1 TAB PO DAILY BP (Reported) Pantoprazole Sodium 40 MG TABLET.DR 1 TAB PO DAILY GI (Reported) Review of Systems Review of Systems: A 14 point system review was obtained and was noncontributory, other than for the fact the patient wears glasses, has had recurrent "pleurisy", and easy bruisability. Past History Travel History Traveled to [place] past 21 day No Medical History Blood Transfusion Hx: No Neurological: NONE EENT: NONE Cardiovascular: hypertension, hyperlipidemia Respiratory: NONE Gastrointestinal: GERD, peptic ulcer disease Hepatic: NONE Renal: NONE Musculoskeletal: NONE Psychiatric: NONE Endocrine: NONE Blood Disorders: NONE Cancer(s): NONE SAGGER MAKER/Reproductive: NONE Surgical History Surgical History: non-contributory Family History Relations & Conditions If Any: BROTHER (CAD( age < 50 yrs)). FATHER (CAD( < 50 yrs)). MOTHER Psychosocial History Where Do You Live? Home Services at Home: None Smoking Status: Former Smoker ETOH Use: heavy use Illicit Drug Use: UTD Exam & Diagnostic Data Vital Signs and I&O Vital Signs Date Time Temp Pulse Resp B/P B/P Pulse O2 O2 Flow FiO2 Mean Ox Delivery Rate 12/12 1800 98.0 90 18 140/80 12/12 1640 98.0 90 18 140/80 93 Room Air 12/12 1600 98.0 90 18 140/80 12/12 1004 Room Air 12/12 0921 93 Room Air 12/12 0801 97.9 81 14 156/90 94 Room Air 12/12 0800 Room Air 12/12 0800 97.9 81 20 156/90 12/11 2138 97.8 81 20 130/80 95 12/11 2130 Room Air 12/11 2025 98.6 78 18 118/73 12/11 2025 98.6 78 18 11873 97 Room Air Intake & Output 12/12 1600 12/12 0800 12/12 0000 12/11 1600 12/11 0800 12/11 0000 Intake Total 1482 1375 0 Output Total 400 Balance 1482 1375 -400 Intake, IV 720 875 0 Intake, Oral 762 500 0 Number 0 0 Bowel Movements Output, Urine 400 Patient 150 lb Weight Weight Reported by Patient Measurement Method Physical Exam: Well-developed, well-nourished middle-aged male in no acute distress with nasal oxygen in place. Vital signs: See above. HEENT: Normocephalic, atraumatic, EOMI, slightly dry mucous membranes. Neck: No JVD, no bruits. Lungs: Decreased breath sounds bilaterally and otherwise clear. Heart: S1, S2 with no murmur, gallop, or rub appreciated. PMI fifth ICS at MCL. Abdomen: Soft, nontender, positive bowel sounds. Extremities: No edema. Peripheral pulses: Symmetrical and intact. Labs/Mukesh Results: Laboratory Tests 12/12 12/11 0635 2258 Chemistry Sodium (137 - 145 mmol/L) 140 Potassium (3.5 - 5.1 mmol/L) 4.6 Chloride (98 - 107 mmol/L) 109 H Carbon Dioxide (22 - 30 mmol/L) 24 Anion Gap (5 - 16) 7 BUN (9 - 20 mg/dL) 27 H Creatinine (0.7 - 1.2 mg/dL) 1.8 H Estimated GFR (>60 ml/min) 39 L BUN/Creatinine Ratio (7 - 25 %) 15.0 Creatine Kinase (55 - 170 U/L) 131 Troponin I (<0.11 ng/ml) < 0.01 Hematology CBC w Diff NO MAN DIFF REQ WBC (4.8 - 10.8 /CUMM) 5.4 RBC (4.70 - 6.10 /CUMM) 3.83 L Hgb (14.0 - 18.0 G/DL) 11.4 L Hct (42 - 52 %) 34.3 L MCV (80.0 - 94.0 FL) 89.6 MCH (27.0 - 31.0 PG) 29.9 RDW (11.5 - 14.5 %) 14.3 Plt Count (130 - 400 /CUMM) 158 MPV (7.4 - 10.4 FL) 9.9 Gran % (42.2 - 75.2 %) 68.0 Lymphocytes % (20.5 - 51.1 %) 19.1 L Monocytes % (1.7 - 9.3 %) 9.3 Eosinophils % (0 - 5 %) 2.9 Basophils % (0.0 - 2.0 %) 0.7 Absolute Granulocytes (1.4 - 6.5 /CUMM) 3.7 Absolute Lymphocytes (1.2 - 3.4 /CUMM) 1.0 L Absolute Monocytes (0.10 - 0.60 /CUMM) 0.5 Absolute Eosinophils (0.0 - 0.7 /CUMM) 0.2 Absolute Basophils (0.0 - 0.2 /CUMM) 0 PUBS MCHC (33.0 - 37.0 G/DL) 33.3 12/11 12/11 1630 1630 Toxicology Urine Opiates Screen (>2000 NG/ML) < 100.00 Methadone Screen (>300 NG/ML) < 40 Barbiturate Screen (>200 NG/ML) < 60 Ur Phencyclidine Scrn (>25 NG/ML) < 6.00 Amphetamines Screen (>1000 NG/ML) < 100 U Benzodiazepines Scrn (>200 NG/ML) 85 Urine Cocaine Screen (>300 NG/ML) > 1000 H Urine Cannabis Screen (>50 NG/ML) 66.00 H Urines Urinalysis LIGHT H Urine Color (YEL,AMB,STR) STRAW Urine Clarity (CLEAR) CLEAR Urine pH (5.0 - 8.0) 6.0 Ur Specific [place] (1.001 - 1.035) 1.020 Urine Protein (NEG,<30 MG/DL) 100 H Urine Ketones (NEG) NEG Urine Nitrite (NEG) NEG Urine Bilirubin (NEG) NEG Urine Urobilinogen (0.1 - 1.0 EU/dl) 0.2 Ur Leukocyte Esterase (NEG) NEG Ur Microscopic SEDIMENT EXAMINED Urine RBC (0 - 5 /HPF) 15-25 H Urine WBC (0 - 2 /HPF) 5-10 H Ur Epithelial Cells (NONE,FEW) FEW Urine Mucus (FEW,NONE) FEW Urine Hemoglobin (NEG) LARGE H Ur Random Creatinine (mg/dL) 46.1 Ur Random Sodium (30 - 90 mmol/L) 76 Ur Random Potassium (mmol/L) 11.7 Fraction Sodium Excret (<1% %) 2.7 H Urine Glucose (N MG/DL) NEG 12/11 1520 Chemistry Sodium (137 - 145 mmol/L) 143 Potassium (3.5 - 5.1 mmol/L) 4.1 Chloride (98 - 107 mmol/L) 111 H Carbon Dioxide (22 - 30 mmol/L) 19 L Anion Gap (5 - 16) 13 BUN (9 - 20 mg/dL) 34 H Creatinine (0.7 - 1.2 mg/dL) 2.3 H Estimated GFR (>60 ml/min) 29 L BUN/Creatinine Ratio (7 - 25 %) 14.8 Glucose (65 - 99 mg/dL) 94 Hemoglobin A1c (4.2 - 5.8 %) 5.4 Calcium (8.4 - 10.2 mg/dL) 9.2 Magnesium (1.6 - 2.3 mg/dL) 2.4 H Iron (49 - 181 ug/dL) 99 TIBC (261 - 462 ug/dL) 315 Ferritin (17.9 - 464 ng/mL) 89.1 Total Bilirubin (0.2 - 1.3 mg/dL) 0.3 AST (17 - 59 U/L) 19 ALT (21 - 72 U/L) 25 Alkaline Phosphatase (< 127 U/L) 58 Creatine Kinase (55 - 170 U/L) 209 H Troponin I (<0.11 ng/ml) < 0.01 Total Protein (6.3 - 8.2 g/dL) 6.7 Albumin (3.5 - 5.0 g/dL) 3.9 Globulin (1.9 - 4.2 gm/dL) 2.8 Albumin/Globulin Ratio (1.1 - 2.2 %) 1.4 Hematology CBC w Diff NO MAN DIFF REQ WBC (4.8 - 10.8 /CUMM) 6.7 RBC (4.70 - 6.10 /CUMM) 3.97 L Hgb (14.0 - 18.0 G/DL) 11.7 L Hct (42 - 52 %) 35.0 L MCV (80.0 - 94.0 FL) 88.2 MCH (27.0 - 31.0 PG) 29.5 RDW (11.5 - 14.5 %) 13.9 Plt Count (130 - 400 /CUMM) 181 MPV (7.4 - 10.4 FL) 9.6 Gran % (42.2 - 75.2 %) 63.7 Lymphocytes % (20.5 - 51.1 %) 24.9 Monocytes % (1.7 - 9.3 %) 8.2 Eosinophils % (0 - 5 %) 2.5 Basophils % (0.0 - 2.0 %) 0.7 Absolute Granulocytes (1.4 - 6.5 /CUMM) 4.2 Absolute Lymphocytes (1.2 - 3.4 /CUMM) 1.7 Absolute Monocytes (0.10 - 0.60 /CUMM) 0.5 Absolute Eosinophils (0.0 - 0.7 /CUMM) 0.2 Absolute Basophils (0.0 - 0.2 /CUMM) 0 PUBS MCHC (33.0 - 37.0 G/DL) 33.5 Toxicology Salicylates (0 - 20.0 mg/dL) < 1.0 Acetaminophen (10.0 - 30.0 ug/mL) < 10.0 L Serum Alcohol (<10 MG/DL) 246.0 Diagnostic Data EKG Results (12/11/2016) sinus rhythm and otherwise unremarkable. Slightly faster rate when compared to previous tracing performed earlier on 12/11/2016. CXR Results (12/11/2016): Mild bibasilar atelectasis. Other Results Head CT (12/11/2016): 1. No acute intracranial hemorrhage or mass effect. 2. Mild prominence of the sulci and mild hypoattenuation of the periventricular white matter, which may represent chronic small vessel ischemic disease. If the patient's symptomatology continues an MRI scan could be considered if patient is an appropriate candidate and there are no contraindications to MRI. Assessment/Plan Assessment/Plan 61-y-o-w-m w/ hx tobacco use (60 pk-yr d/c'd x 12 yrs), COPD, PUD, HTN, HLD, ? pre-DM, and very strong FH for CAD who presented 12/11/2016 after becoming unresponsive following a morning and early afternoon of binge drinking (10-12 beers; multiple shots of liquor) who recalls experiencing anterior chest "heaviness" of 5/10 intensity without radiation or associated symptoms that lasted ~20 minutes before subsiding. Not surprisingly, his cardiac enzymes reveal no evidence of myocardial necrosis, given the brief period of time the chest discomfort was present and it is reassuring that he has had no acute electrocardiographic changes. Nonetheless, he has multiple risk factors for coronary artery disease and should have an imaging stress test performed to exclude significant ischemia. An echocardiogram would also be appropriate to assess his left ventricular systolic/diastolic function, degree of left ventricular hypertrophy, right ventricular function, estimated PA pressure, etc. Recommendations: * Telemetry admission, follow-up troponins as have been done, and follow-up electrocardiogram. * Schedule for an echocardiogram. * Scheduled for an imaging nuclear stress test. * Continue on his present and hypertensive regimen (FEROZ inhibitor). * Avoid ASA given history of PUD. * Renal ultrasound to check kidney size. * Consider nephrology consultation. * Continue to hydrate with IV fluids. * DVT prophylaxis. * Psychiatric counseling for alcohol abuse. * EtOH withdrawal prophylaxis. Further recommendations will follow, Thank you. Consult Acknowledgment - Thank you for your consult request.
[2016-12-13] VITALS (7 sets, daily range): BP systolic 138–162; BP diastolic 66–92
--- NOTE | 2016-12-13 09:42 | PN- Housestaff ---
Subjective Follow-up For: Syncope/chest pain Alcohol abuse Acute kidney injury Tele-Events Since Last Visit: Note tele events Subjective: He is alert, awake and oriented. He is complaining of dull mid chest pain that is nonradiating. Pain comes in when he moves [id number]. No chest pain or discomfort on deep inspiration. No episode of bloody stool. He is eating drinking okay. He is going in medication on Monday so wants to get discharge tomorrow. Review of Systems Constitutional: Reports: see HPI. Objective Last 24 Hrs of Vital Signs/I&O Vital Signs Date Time Temp Pulse Resp B/P B/P Pulse O2 O2 Flow FiO2 Mean Ox Delivery Rate 12/13 1140 96 Room Air 12/13 0928 84 162/92 12/13 0800 Room Air 12/13 0657 97.0 84 18 162/92 93 Room Air 12/13 0137 97.9 90 18 138/66 90 Room Air 12/12 1850 94 Room Air 12/12 1800 98.0 90 18 140/80 12/12 1640 98.0 90 18 140/80 93 Room Air 12/12 1600 98.0 90 18 140/80 Intake & Output 12/13 1600 12/13 0800 12/13 0000 Intake Total 525 765 Output Total Balance 525 765 Intake, IV 525 525 Intake, Oral 240 Physical Exam General Appearance: Alert, Oriented X3, Cooperative, No Acute Distress Neck: Supple Cardiovascular: Regular Rate, No Murmurs Lungs: Clear to Auscultation Abdomen: Normal Bowel Sounds, Soft, No Tenderness Extremities: No Edema Current Medications: Current Medications Sig/Jose Start time Last Medication Dose Route Stop Time Status Admin Acetaminophen 650 MG Q6P PRN 12/11 2230 AC PO Albuterol Sulfate 3 ML BID 12/12 1000 AC 12/13 INH 1137 Albuterol Sulfate 3 ML Q4P PRN 12/12 0815 AC INH Amlodipine Besylate 5 MG ONCE ONE 12/13 0830 DC 12/13 PO 12/13 0831 0928 Aspirin Buffered 81 MG DAILY 12/12 1000 DC 12/12 PO 0905 Clonidine 0.1 MG TID PRN 12/13 1045 AC PO Folic Acid 1 MG DAILY 12/13 1000 AC 12/13 PO 0928 Heparin Sodium 5,000 UNIT Q8 12/12 1400 AC 12/13 (Porcine) SC 0641 Lorazepam 1.5 MG Q8 12/13 1400 AC PO Lorazepam 2 MG Q6 12/12 0600 DC 12/13 PO 0641 Lorazepam See Dose Q1P PRN 12/11 2230 AC Insts (1) IV Multivitamins 1 TAB DAILY 12/13 1000 AC 12/13 PO 0928 Omeprazole 40 MG DAILY AC 12/12 0700 AC 12/13 PO 0641 Polyethylene Glycol 17 GM DAILY 12/13 1000 AC PO Senna/Docusate Sodium 1 TAB BID 12/13 1000 AC 12/13 PO 1129 Sodium Chloride 1,000 ML Q13H 12/12 1000 AC 12/12 IV 2142 Thiamine HCl 100 MG DAILY 12/13 1000 AC 12/13 PO 0928 Dose Instructions: (1)Lorazepam: See Admin Criteria Last 24 Hrs of Lab/M[place]esh Results Last 24 Hrs of Labs/Mics: Laboratory Tests 12/13/16 0650: Anion Gap 7, Estimated GFR 36 L, BUN/Creatinine Ratio 12.1 Assessment/Plan Assessment: History 61-year-old man with past medical history of hypertension, COPD, colonic polyps and hemorrhoids. Problem list 1. Syncopal episode. Most likely due to alcohol and substance abuse vs ? cardiac 2. Chest pain. ? ACS. Negative EKGs and troponins 2 3. Alcohol and substnace abuse. On CIWA protocol and Ativan (scheduled and PRN ). CIWA 0-2 4. Acute kidney injury. FENa 2.7. likely ATN. Improving. BUN/creatinine 34/ 2.3 on admission. This morning 23/1.9. Renal ultrasound normal 5. History of colonic polyps and hemorrhoids. Colonoscopy every 3 years. Last colonoscopy on February 2016. 6. History of BRBPR. last 2 days prior to admission 7. History of anemia. 8. Agiulera's esophagus/ Mild erosive gastritis and nonerosive duodenitis. Next EGD in February 2017. 9. Hypertension. Lisinopril on hold because of acute kidney injury PLAN * Monitor vitals closely * Keep electrolytes within normal range * Continue CIWA protocol and Ativan as needed per CIWA * Continue scheduled Ativan and taper down to 1.5 mg every 8 hours * Continue multivitamins/thiamine/folic acid * Continue TRC nebs * Echocardiogram to rule out cardiomyopathy * Cardio consult appreciated. Scheduled stress test as an outpatient * Monitor kidney functions daily * Avoid nephrotoxins * Continue gentle IV fluids * Lisinopril on hold because of a EL * Will start him on clonidine 0.1 mg 3 times a day as needed * Continue PPI * Social work consult * Subcutaneous heparin for DVT prophylaxis * FULL CODE Problem List: 1. EL (acute kidney injury) 2. Alcohol intoxication 3. chest pain Pain Ratin Pain Location: chest Pain Goal: Pain 4 or less Pain Plan: tylenol Tomorrow's Labs & Rationales: bep DVT/Prophylaxis: pharmacological
--- NOTE | 2016-12-13 11:21 | ULTRASOUND REPORT ---
EXAMINATION: US RETROPERITONEAL COMPLETE (RENAL) CLINICAL INFORMATION: Evaluate underlying renal disease. Patient states history of kidney stone approximately 30 years ago. COMPARISON: None TECHNIQUE: Real-time imaging of the kidneys and bladder. FINDINGS: RIGHT KIDNEY: 11.4 x 6.0 x 6.1 cm (SAG x AP x TRV). The kidney is normal in size, contour, and echogenicity. Renal cortical thickness is normal. No calculi or focal parenchymal lesions. No hydronephrosis. LEFT KIDNEY: 12.0 x 6.2 x 4.9 cm (SAG x AP x TRV). The kidney is normal in size, contour, and echogenicity. Renal cortical thickness is normal. No calculi or focal parenchymal lesions. No hydronephrosis. BLADDER: Well-distended and normal. Bilateral ureteral jets are demonstrated. Prevoid bladder volume is 182 mL. Postvoid bladder volume is 34 mL. PROSTATE GLAND: Heterogeneous and borderline enlarged, measuring 3.9 x 3.7 x 4.9 cm. IMPRESSION: Normal renal ultrasound.
--- NOTE | 2016-12-13 15:34 | PN- Att Addend ---
Attending Addendum Attending Brief Note Patient seen and examined. Plan of care discussed with the medical team and the patient. Available lab work and radiology test reports were reviewed. Patient has no specific new complaints today. He no longer has any chest pressure or pain. Denies any recent fever chills or difficulty breathing. Vital Signs Date Time Temp Pulse Resp B/P B/P Pulse O2 O2 Flow FiO2 Mean Ox Delivery Rate 12/13 1425 97.1 101 18 158/82 95 Room Air 12/13 1140 96 Room Air 12/13 0928 84 162/92 12/13 0800 Room Air 12/13 0657 97.0 84 18 162/92 93 Room Air 12/13 0137 97.9 90 18 138/66 90 Room Air 12/12 1850 94 Room Air 12/12 1800 98.0 90 18 140/80 12/12 1640 98.0 90 18 140/80 93 Room Air 12/12 1600 98.0 90 18 140/80 Intake & Output 12/13 1600 12/13 0800 12/13 0000 Intake Total 650 525 765 Output Total Balance 650 525 765 Intake, IV 525 525 Intake, Oral 650 240 Exam: General: Patient awake alert oriented without any distress CVS: S1 plus S2 without any murmur or gallops Chest: Few scattered crepitation without any wheeze. There is no respiratory distress. 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 Assessment 1. Syncopal episode. Most likely due to alcohol and substance abuse vs ? cardiac; no evidence of arrhythmia 2. Chest pain. ? ACS. Negative EKGs and troponins 2 3. Alcohol and substnace abuse. On CIWA protocol and Ativan (scheduled and PRN ). CIWA 0-2 4. Acute kidney injury. FENa 2.7. likely ATN. Improving. BUN/creatinine 34/ 2.3 on admission. Renal ultrasound normal 5. History of colonic polyps and hemorrhoids. Colonoscopy every 3 years. Last colonoscopy on February 2016. 6. History of BRBPR. last 2 days prior to admission 7. History of anemia. 8. Aguilera's esophagus/ Mild erosive gastritis and nonerosive duodenitis. Next EGD in February 2017. 9. Hypertension. Lisinopril on hold because of acute kidney injury plan Plan * Await echocardiogram * Continue IV fluids * Encourage oral liquids * Repeat creatinine and BUN tomorrow * Increase activity * Possible discharge tomorrow
[2016-12-14 06:48] VITALS: BP 150/88
--- NOTE | 2016-12-14 08:28 | PN- Att Addend ---
Attending Addendum Attending Brief Note Patient seen and examined. Plan of care discussed with the medical team and the patient. Available lab work and radiology test reports were reviewed. Patient has no specific new complaints today. He no longer has any chest pressure or pain. Denies any recent fever chills or difficulty breathing. Pt is going for stress test. Vital Signs Date Time Temp Pulse Resp B/P B/P Pulse O2 O2 Flow FiO2 Mean Ox Delivery Rate 12/14 0648 97.7 89 20 150/88 96 Room Air 12/14 0000 Room Air 12/13 2154 98.0 68 20 140/90 96 Room Air 12/13 1902 95 Room Air Room Air 12/13 1800 97.1 94 18 148/90 12/13 1634 94 148/90 12/13 1634 94 20 148/90 12/13 1600 97.1 101 18 158/82 12/13 1425 97.1 101 18 158/82 95 Room Air 12/13 1140 96 Room Air 12/13 0928 84 162/92 Intake & Output 12/14 1600 12/14 0800 12/14 0000 Intake Total 525 882 Output Total Balance 525 882 Intake, IV 400 360 Intake, Oral 125 522 Exam: General: Patient awake alert oriented without any distress CVS: S1 plus S2 without any murmur or gallops Chest: Few scattered crepitation without any wheeze. There is no respiratory distress. 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 Syncopal episode. Most likely due to alcohol and substance abuse vs ? cardiac; no evidence of arrhythmia 2. Chest pain. ? ACS. Negative EKGs and troponins 2 3. Alcohol and substnace abuse. On CIWA protocol and Ativan (scheduled and PRN ). CIWA 0-2 4. Acute kidney injury. FENa 2.7. likely ATN. Improving. BUN/creatinine 34/ 2.3 on admission. Renal ultrasound normal 5. History of colonic polyps and hemorrhoids. Colonoscopy every 3 years. Last colonoscopy on February 2016. 6. History of BRBPR. last 2 days prior to admission 7. History of anemia. 8. Aguilera's esophagus/ Mild erosive gastritis and nonerosive duodenitis. Next EGD in February 2017. 9. Hypertension. Lisinopril on hold because of acute kidney injury plan 10. suspected suicidal attempt - patient apparently has made statements to nursing staff alluding to suicidal attempt Plan * Await echocardiogram * Stress test today * Continue IV fluids * Encourage oral liquids * Repeat creatinine and BUN tomorrow * Increase activity * psych consult today for possible suicidal ideation and attempt * Possible discharge tomorrow
--- NOTE | 2016-12-14 08:30 | NUR ---
DURING BEDSIDE REPORT WITH NIGHT NURSE, ASKED PATIENT IF OVERDOSE WAS ACCIDENTAL OR INTENTIONAL. PATIENT REPORTED IT WAS INTENTIONAL. ASKED PATIENT IF PATIENT IS SUICIDAL NOW AND IF HE HAS A PLAN. PATIENT DENIES SI AND NO PLAN OTHER THAN GETTING BETTER, "I HAVE TOO MUCH TO LIVE FOR". REPORTED THIS DURING MDR'S AND AN ORDER FOR SOCIAL WORK AND PSYCH ORDERED. WILL CONTINUE TO MONITOR.
--- NOTE | 2016-12-14 09:30 | NUR ---
TO STRESS TEST VIA WHEELCHAIR. ALERT ORIENTED X3. NO COMPLAINTS.
--- NOTE | 2016-12-14 11:00 | NUR ---
BACK FROM 1ST PART STRESS TEST, PATIENT TO RETURN TO NUCLEAR MEDICINE AT 1330. NOTIFIED RESIDENT DR MCDONALD #[id number] OF RETURN TO UNIT. PATIENT ALERT ORIENTED X3. NO COMPLAINTS. VSS. PLACED BACK ON MONITOR. CALL BRAND IN REACH.
[2016-12-14 11:15] VITALS: BP 130/80
--- NOTE | 2016-12-14 11:31 | PN- Cardiology ---
Assessment/Plan Assessment/Plan 61-y-o-w-m w/ hx tobacco use (60 pk-yr d/c'd x 12 yrs), COPD, PUD, HTN, HLD, ? pre-DM, and very strong FH for CAD who presented 12/11/2016 after becoming unresponsive following a morning and early afternoon of binge drinking (10-12 beers; multiple shots of liquor) who recalls experiencing anterior chest "heaviness" of 5/10 intensity without radiation or associated symptoms that lasted ~20 minutes before subsiding. Not surprisingly, his cardiac enzymes reveal no evidence of myocardial necrosis, given the brief period of time the chest discomfort was present and it is reassuring that he has had no acute electrocardiographic changes. * Multiple risk factors for coronary artery disease and imaging stress test performed this a.m. with poor functional capacity secondary to his COPD and submaximal heart rate achieved. Nuclear images pending. * Follow-up on echocardiogram. * Continue DVT prophylaxis. Continue telemetry? Yes
--- NOTE | 2016-12-14 12:07 | PN- Housestaff ---
Subjective Follow-up For: Syncope/chest pain Alcohol abuse Acute kidney injury Subjective: This morning patient is alert, awake and oriented. He denies any chest pain or discomfort. Reports mild breathing difficulty. He is nothing by mouth after midnight tonight and going for stress test today. On my evaluation patient denies any suicidal ideation, attempt or plan. Review of Systems Constitutional: Reports: see HPI. Objective Last 24 Hrs of Vital Signs/I&O Vital Signs Date Time Temp Pulse Resp B/P B/P Pulse O2 O2 Flow FiO2 Mean Ox Delivery Rate 12/14 1115 96.6 94 18 130/80 97 Room Air 12/14 0843 97 Room Air 12/14 0648 97.7 89 20 150/88 96 Room Air 12/14 0000 Room Air 12/13 2154 98.0 68 20 140/90 96 Room Air 12/13 1902 95 Room Air Room Air 12/13 1800 97.1 94 18 148/90 12/13 1634 94 148/90 12/13 1634 94 20 148/90 12/13 1600 97.1 101 18 158/82 12/13 1425 97.1 101 18 158/82 95 Room Air Intake & Output 12/14 1600 12/14 0800 12/14 0000 Intake Total 525 882 Output Total Balance 525 882 Intake, IV 400 360 Intake, Oral 125 522 Physical Exam General Appearance: Alert, Oriented X3, Cooperative, No Acute Distress Neck: Supple Cardiovascular: Regular Rate, No Murmurs Lungs: Clear to Auscultation Abdomen: Normal Bowel Sounds, Soft, No Tenderness Neurological: Normal Speech, Strength at 5/5 X4 Ext, Sensation Intact, Cranial Nerves 3-12 NL Extremities: No Edema Current Medications: Current Medications Sig/Jose Start time Last Medication Dose Route Stop Time Status Admin Acetaminophen 650 MG Q6P PRN 12/11 2230 AC PO Albuterol Sulfate 3 ML BID 12/12 1000 AC 12/14 INH 0839 Albuterol Sulfate 3 ML Q4P PRN 12/12 0815 AC INH Clonidine 0.1 MG TID PRN 12/13 1045 AC 12/13 PO 1634 Folic Acid 1 MG DAILY 12/13 1000 AC 12/14 PO 1140 Heparin Sodium 5,000 UNIT Q8 12/12 1400 AC 12/14 (Porcine) SC 0602 Lorazepam 1 MG BID 12/14 1800 CAN PO Lorazepam 1 MG BID 12/14 1800 AC PO Lorazepam 1 MG Q12 12/14 1000 DC PO Lorazepam 1.5 MG Q8 12/13 1400 DC 12/14 PO 0602 Lorazepam See Dose Q1P PRN 12/11 2230 AC Insts (1) IV Multivitamins 1 TAB DAILY 12/13 1000 AC 12/14 PO 1140 Omeprazole 40 MG DAILY AC 12/12 0700 AC 12/13 PO 0641 Polyethylene Glycol 17 GM DAILY 12/13 1000 AC PO Senna/Docusate Sodium 1 TAB BID 12/13 1000 AC 12/13 PO 2124 Sodium Chloride 1,000 ML Q13H 12/12 1000 AC 12/14 IV 0831 Thiamine HCl 100 MG DAILY 12/13 1000 AC 12/14 PO 1140 Dose Instructions: (1)Lorazepam: See Admin Criteria Last 24 Hrs of Lab/M[place]esh Results Last 24 Hrs of Labs/Mics: Laboratory Tests 12/14/16 0641: Anion Gap 7, Estimated GFR 39 L, BUN/Creatinine Ratio 11.7 Assessment/Plan Assessment: History 61-year-old man with past medical history of hypertension, COPD, colonic polyps and hemorrhoids. Problem list 1. Syncopal episode. Most likely due to alcohol and substance abuse vs ? cardiac 2. Chest pain. ? ACS. Negative EKGs and troponins 2 3. Alcohol and substnace abuse. On CIWA protocol and Ativan (scheduled and PRN ). 4. Acute kidney injury.This morning creatinine is 1.8. Renal ultrasound normal 5. History of colonic polyps and hemorrhoids. Colonoscopy every 3 years. Last colonoscopy on February 2016. 6. History of BRBPR. last 2 days prior to admission 7. History of anemia. 8. Aguilera's esophagus/ Mild erosive gastritis and nonerosive duodenitis. Next EGD in February 2017. 9. Hypertension. Lisinopril on hold because of acute kidney injury PLAN * Monitor vitals closely * Keep electrolytes within normal range * Continue CIWA protocol and Ativan as needed per CIWA * Continue scheduled Ativan and taper down to 1 mg BID * Continue multivitamins/thiamine/folic acid * Continue TRC nebs * f/u Echocardiogram * Stress test today * Monitor kidney functions daily * Avoid nephrotoxins * Continue gentle IV fluids * Lisinopril on hold because of a EL * Continue PPI * Social work consult * Psych consult * Subcutaneous heparin for DVT prophylaxis * FULL CODE Problem List: 1. Altered mental status 2. Alcohol intoxication Pain Ratin Pain Location: none Pain Goal: Pain 4 or less Pain Plan: tylenol Tomorrow's Labs & Rationales: bep DVT/Prophylaxis: pharmacological
--- NOTE | 2016-12-14 13:14 | NUR ---
TO NUCLEAR MEDICINE VIA STRETCHER. ALERT ORIENTED X3. NO COMPLAINTS.
--- NOTE | 2016-12-14 14:20 | NUR ---
BACK FROM NUCLEAR MEDICINE. NOTIFIED RESIDENT DR MCDONALD #[id number] OF PATIENT BACK ON UNIT. PATIENT AND FAMILY WOULD LIKE AN UPDATE REGARDING POC. PLACED BACK ON MONITOR. CALL BRAND IN REACH.
--- NOTE | 2016-12-14 14:36 | NUR ---
Referral received Monday via electronic border machine operator. This patient is a 61 year old man, admitted to the hospital on 12/11/16 with unresponsiveness. Patient given narcan; has had an elevated BAL and +UTox for cocaine and marijuana. Met with patient briefly this am. Awake and alert; had completed one part of his cardiac stress test and was waiting to be taken for the second part. Slightly agitated when the issue of aftercare for substance abuse treatment is raised; patient acknowledges and exhibits anxiety, and says he will not participate in any treatment where there are groups. Case discussed with Lina Marr APRN. He has received a referral to see this patient as the patient told the RN this am that his overdose was a suicide attempt; when I queried patient he denied same. Await psychiatric consult.
[2016-12-14 14:39] VITALS: BP 150/82
--- NOTE | 2016-12-14 15:46 | NUCLEAR MEDICINE REPORT ---
EXERCISE STRESS AND RESTING SPECT MYOCARDIAL PERFUSION IMAGING STUDY WITH GATED SPECT IMAGES: CLINICAL INDICATION: Hypertension. PROCEDURE: Regional myocardial perfusion was assessed using a 1 day protocol. Stress images were obtained on 12/14/2016 following the intravenous administration of 18.7 mCi Tc 99m Myoview. Stress was performed using the standard Prince protocol, with the patient reaching a peak heart rate of 78% maximal predicted heart rate. Rest images were obtained 12/14/2016 following the intravenous administration of 30.2 mCi Technetium 99m Myoview. Single photon emission tomographic (SPECT) images were obtained. SPECT images were acquired in a 64 x 64 matrix of 64 projections over 180 degrees. These were reconstructed into standard short axis, horizontal and vertical long axis cardiac projections. FINDINGS: The post stress images demonstrate the left ventricular chamber to be normal in size. There is a small region of moderately decreased activity present in the basal inferior wall an in the adjacent basal inferoseptal wall. This is probably due to attenuation by the adjacent diaphragm, and the latter can be visualized on review of the acquired raw projections. No other regions of abnormally decreased activity are noted. The resting images also demonstrate are not significantly changed from the post stress images. The stress images were obtained using a gated SPECT technique, which permits visualization of wall motion and calculation of the left ventricular ejection fraction. No left ventricular wall motion abnormalities are noted on the stress study. The calculated left ventricular ejection fraction is 47% on the stress study. No previous study is available for comparison. IMPRESSION: Probable normal exercise stress and resting myocardial perfusion study with normal left ventricular wall motion and ejection fraction. Decreased activity in the inferior wall is likely due to attenuation by the adjacent diaphragm. However, because the patient was unable to achieve an adequate heart rate response, significant myocardial ischemia during exercise cannot be ruled out.
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
--- NOTE | 2016-12-14 17:52 | ECHOCARDIOGRAM REPORT ---
SHANIQUE MORENO Age: 61 : 1955 Gender: M Exam Date: 12/13/2016 18:33 Exam Location: [place] Ht (in): 67 Wt (lb): 150 BSA: 1.80 BP: 162 / 92 Ordering Physician: LOWELL MCDONALD MD Referring Physician: Paul Gray MD Technologist: Brenda Novak [facility] Room Number: 182 Indications: CHEST PAIN, CARDIOMYOPATHY Rhythm: Sinus Technical Quality: Fair FINDINGS Left Ventricle Normal size left ventricle. Mild concentric left ventricular hypertrophy. No obvious regional wall motion abnormalities. Normal left ventricular ejection fraction visually estimated at >55%. Abnormal relaxation filling pattern of the left ventricle for age (stage 1 diastolic dysfunction). Right Ventricle Normal right ventricular size and function. Right Atrium Normal right atrial size. Left Atrium Normal left atrial size. Mitral Valve Mild mitral annular calcification. Mitral valve mildly thickened. Trace mitral regurgitation. Aortic Valve Trileaflet aortic valve. Mild aortic sclerosis. No aortic valve stenosis or regurgitation. Tricuspid Valve Structurally normal tricuspid valve. No tricuspid regurgitation. Unable to estimate the right ventricular systolic pressure. Pulmonic Valve Pulmonic valve not well visualized, grossly normal. No pulmonic regurgitation. Pericardium No pericardial effusion. Great Vessels Normal size aortic root. Normal size inferior vena cava. CONCLUSIONS Normal size left ventricle. Mild concentric left ventricular hypertrophy. Normal left ventricular ejection fraction visually estimated at > 55%. Abnormal relaxation filling pattern of the left ventricle for age (stage 1 diastolic dysfunction). Normal right ventricular size and function. Normal atrial size. Trace mitral regurgitation. Unable to estimate the right ventricular systolic pressure. Paul Gray M.D. (Electronically Signed) Final Date: 14 December 2016 17:51 MEASUREMENTS (Male / Female) Normal Values 2D ECHO LV Diastolic Diameter PLAX 4.5 cm 4.2 - 5.9 / 3.9 - 5.3 cm LV Systolic Diameter PLAX 3.1 cm 2.1 - 4.0 cm LV Fractional Shortening PLAX 31.1 % 25 - 46 % LV Ejection Fraction 2D Teich 59.0 % IVS Diastolic Thickness 1.1 cm LVPW Diastolic Thickness 1.1 cm LV Relative Wall Thickness 0.5 RV Internal Dim ED PLAX 2.9 cm 1.9 - 3.8 cm LVOT Diameter 2.3 cm Aortic Root Diameter 3.2 cm LA Systolic Diameter LX 3.4 cm 3.0 - 4.0 / 2.7 - 3.8 cm LA Volume 34.0 cm 18 - 58 / 22 - 52 cm Ascending Aorta Diameter 3.1 cm DOPPLER AV Peak Velocity 115.0 cm/s AV Peak Gradient 5.3 mmHg AV Mean Velocity 83.7 cm/s AV Mean Gradient 3.0 mmHg AV Velocity Time Integral 22.2 cm LVOT Peak Velocity 81.9 cm/s LVOT Peak Gradient 2.7 mmHg LVOT Mean Velocity 57.1 cm/s LVOT Mean Gradient 2.0 mmHg LVOT Velocity Time Integral 15.6 cm LVOT Stroke Volume 64.8 cm AV Area Cont Eq vti 2.9 cm AV Area Cont Eq pk 3.0 cm MV Peak Velocity 98.7 cm/s MV Peak Gradient 3.9 mmHg MV Mean Velocity 48.9 cm/s MV Mean Gradient 1.0 mmHg Mitral E Point Velocity 46.9 cm/s Mitral A Point Velocity 57.4 cm/s Mitral E to A Ratio 0.8 MV PHT Velocity 55.2 cm/s MV Deceleration Huron 158.0 cm/s MV Pressure Half Time 104.8 ms MV Area PHT 2.1 cm MV Deceleration Time 198.0 ms PV Peak Velocity 80.5 cm/s PV Peak Gradient 2.6 mmHg PV Mean Velocity 55.0 cm/s PV Mean Gradient 1.0 mmHg PV Velocity Time Integral 13.2 cm LV E' Lateral Velocity 8.8 cm/s Mitral E to LV E' Lateral Ratio 5.3 LV E' Septal Velocity 7.2 cm/s Mitral E to LV E' Septal Ratio 6.5
[2016-12-14 23:03] VITALS: BP 140/80
[2016-12-15] VITALS: BP 170/100
[2016-12-15 07:16] VITALS: BP 108/70
[2016-12-15 07:39] VITALS: BP 148/76
--- NOTE | 2016-12-15 07:44 | Patient Discharge Instructions ---
Discharge Instructions General Discharge Information You were seen/treated for: Syncope/chest pain Alcohol abuse Acute kidney injury Special Instructions: 1. please followup with your primary care after discharge 2. please followup with Dr. Gray, diamond broker after discharge 3. In an event of a psychiatric emergency call [phone], or go to nearest emergency. department. 4. If you would like to pursue medication or group therapy for treatment of mental health concerns please call [facility] at [phone] or [facility] at to arrange for an intake appointment. 5. Holding yout lisinopril because of kidney damage. we are starting a new medication, Amlodipine for your blood pressure. Please ask your PCP to repeat your kidney functions in 3-4 days. 6. Maintain adequate hydration Diet Continue normal diet: Yes Activity Full Activity/No Limits: Yes Acute Coronary Syndrome Inclusion Criteria At DC or during hospital stay patient has or had the following: ACS DIAGNOSIS No Discharge Core Measures Meds if any: Prescribed or Continued at Discharge Meds if any: NOT Prescribed or Continued at Discharge Congestive Heart Failure Inclusion Criteria At DC or during hospital stay patient has or had the following: CHF DIAGNOSIS No Discharge Core Measures Meds if any: Prescribed or Continued at Discharge Meds if any: NOT Prescribed or Continued at Discharge Cerebrovascular accident Inclusion Criteria At DC or during hospital stay patient has or had the following: CVA/TIA Diagnosis No Discharge Core Measures Meds if any: Prescribed or Continued at Discharge Meds if any: NOT Prescribed or Continued at Discharge Venous thromboembolism Inclusion Criteria VTE Diagnosis No VTE Type NONE VTE Confirmed by (Test) NONE Discharge Core Measures - Per Current guidelines, there needs to be overlap - treatment for the first 5 days of Warfarin therapy. - If discharged on Warfarin prior to 5 days of - overlap therapy, the patient will need to be - assessed for post discharge needs including - *Post discharge parental anticoagulation - *Warfarin and/or parental anticoagulation education - *Follow up date to check INR post discharge At least 5 days overlap therapy as Inpatient No Meds if any: Prescribed or Continued at Discharge Note: Overlap Therapy is Warfarin and Anticoagulant Meds if any: NOT Prescribed or Continued at Discharge
[2016-12-15] MEDS ORDERED: FOLIC ACID1 M1 PO ×2 (07:46→11:05)
[2016-12-15] MEDS ORDERED: ONE DAILY MULT1 EAC2 PO ×2 (07:46→11:05)
[2016-12-15] MEDS ORDERED: VITAMIN B-1100 MG PO ×2 (07:46→11:05)
--- NOTE | 2016-12-15 08:04 | Discharge Summary ---
Visit Information Visit Dates Admission Date: 12/11/16 Discharge Date: 12/15/16 Hospital Course Course Attending Physician: KRANTHI SPRAGUE,GEOVANNI Primary Care Physician: TREY SPRAGUE,FABRICIO Espinosa Hospital Course: He is 61-year-old man with past medical history of hypertension, COPD, colonic polyps and hemorrhoids (Colonoscopy every 3 years. Last colonoscopy on February 2016), History of BRBPR, anemia, Aguilera's esophagus/ Mild erosive gastritis and nonerosive duodenitis (Next EGD in February 2017). Vitals: Afebrile, pulse in 70s, RR 16, blood pressure 157/81 transiently went to 91/55 improved to 114/76, saturating well on room air On exam: A O 3, cooperative, no acute distress, neck supple, JVD normal, no lymphadenopathy, mucosa dry, no focal neurological deficit, no dependent edema, no obvious skin rashes or inflammation CVS: S1-S2, RRR. RS: Clear to auscultate bilaterally. Abdomen: Soft, NT, ND, bowel sounds present. Labs: Hemoglobin 11.1, MCV 88.2, otherwise CBC unremarkable. Bicarbonate 19, anion gap 13, BUN 34, creatinine 2.3, LFT unremarkable, troponin less than 0.01, U tox positive for cocaine and THC Serum alcohol 246 Imaging: Head CT: 1. No acute intracranial hemorrhage or mass effect. 2. Mild prominence of the sulci and mild hypoattenuation of the periventricular white matter, which may represent chronic small vessel ischemic disease. CXR: Mild bibasilar atelectasis. He was admitted on telemetry floor. 1. Syncopal episode. Most likely due to alcohol and substance abuse vs ? cardiac. His troponins 2 were negative and serial EKGs did not show any acute ST-T wave changes. 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 He was seen by Dr. Gray. He recommended to order an echocardiogram and scheduled him for a stress test. ECHOCARDIOGRAM 12/13/16 Normal size left ventricle. Mild concentric left ventricular hypertrophy. Normal left ventricular ejection fraction visually estimated at > 55%. Abnormal relaxation filling pattern of the left ventricle for age (stage 1 diastolic dysfunction). Normal right ventricular size and function. Normal atrial size. Trace mitral regurgitation. Unable to estimate the right ventricular systolic pressure. EXERCISE STRESS AND RESTING SPECT MYOCARDIAL PERFUSION IMAGING STUDY 12/14/16 IMPRESSION: Probable normal exercise stress and resting myocardial perfusion study with normal left ventricular wall motion and ejection fraction. Decreased activity in the inferior wall is likely due to attenuation by the adjacent diaphragm. However, because the patient was unable to achieve an adequate heart rate response, significant myocardial ischemia during exercise cannot be ruled out. Patient was anxious to go home as he wanted to leave for vacation. He was advised to follow-up with Dr. Gray who will schedule him for a pharmacological stress test. 2. Alcohol and substnace abuse. Started him on CIWA protocol and Ativan ( scheduled and PRN). Ativan dose was tapered daily. Patient also expressed suicidal ideation to the nurse stating that alcohol abuse/overdose was intentional. Psych consult was requested. He was not suicidal at that time. Denied any previous suicidal attempt nor he was a threat to himself or others at that time. Patient provided with contact info for [facility] outpatient psychiatric services if he would like to pursue psychiatric medication management. 4. Acute kidney injury On admission his creatinine was 2.3. He was started on IV fluids. Creatinine came down to 1.8. Renal ultrasound was normal. US-RENAL/KIDNEY FINDINGS: RIGHT KIDNEY: 11.4 x 6.0 x 6.1 cm (SAG x AP x TRV). The kidney is normal in size, contour, and echogenicity. Renal cortical thickness is normal. No calculi or focal parenchymal lesions. No hydronephrosis. LEFT KIDNEY: 12.0 x 6.2 x 4.9 cm (SAG x AP x TRV). The kidney is normal in size, contour, and echogenicity. Renal cortical thickness is normal. No calculi or focal parenchymal lesions. No hydronephrosis. BLADDER: Well-distended and normal. Bilateral ureteral jets are demonstrated. Prevoid bladder volume is 182 mL. Postvoid bladder volume is 34 mL. PROSTATE GLAND: Heterogeneous and borderline enlarged, measuring 3.9 x 3.7 x 4.9 cm. 5. Hypertension. Lisinopril was held because of acute kidney injury. In hospital his blood pressures was managed with amlodipine x 1 and clonidine PRN. He was discharged on amlodipine. Allergies: Coded Allergies: venom-honey bee (bee venom (honey bee)) (ANAPHYLAXIS 12/11/16) morphine (VOMITING 11/05/15) Disposition Summary Disposition Principal Diagnosis: Alcohol abuse and detox Chest pain Additional Diagnosis: Acute kidney injury Discharge Disposition: home or self care Discharge Instructions General Discharge Information Code Status: Full Code Patient's Diet: heart healthy Patient's Activity: independent Follow-Up Instructions/Appts: 1. please followup with your primary care after discharge 2. please followup with Dr. Gray, building analyst/supervisor after discharge 3. In an event of a psychiatric emergency call [phone], or go to nearest emergency. department. 4. If you would like to pursue medication or group therapy for treatment of mental health concerns please call [facility] at [phone] or [facility] at to arrange for an intake appointment. 5. Holding yout lisinopril because of kidney damage. we are starting a new medication, Amlodipine for your blood pressure. Please ask your PCP to repeat your kidney functions in 3-4 days. 6. Maintain adequate hydration Medications at Discharge Discharge Medications: Stop taking the following medications: Lisinopril (Lisinopril) 20 MG TABLET ORAL DAILY Qty = 50 Continue taking these medications: Pantoprazole Sodium (Pantoprazole Sodium) 40 MG TABLET. 1 Tablet ORAL DAILY Qty = 30 Comments: NOT GIVEN IN HOSPITAL GAVE PRILOSEC ON 12/15/16 @ 630 AM Albuterol Sulfate (Proair Hfa) 90 MCG HFA.AER.AD 2 Puff Inhale through mouth As Directed as needed for EMPHYSEMA Qty = 9 Comments: Last Taken: 12/15/16 Time: 830 AM Start taking the following new medications: Amlodipine Besylate (Amlodipine Besylate) 5 MG TABLET 1 Tablet ORAL DAILY Qty = 30 No Refills Comments: NOT GIVEN IN HOSPITAL Folic Acid (Folic Acid) 1 MG TABLET 1 Tablet ORAL DAILY Qty = 30 No Refills Comments: Last Taken: 12/15/16 Time: 930 AM Multivitamin (One Daily Multivitamin) 1 EACH TABLET 1 Tablet ORAL DAILY Qty = 30 No Refills Comments: Last Taken: 12/15/16 Time: 930 AM Thiamine HCl (Vitamin B-1) 100 MG TABLET 1 Tablet ORAL DAILY Qty = 30 No Refills Comments: Last Taken: 12/15/16 Time: 930 AM Copies To: TREY SPRAGUE,FABRICIO Espinosa; BETH SPRAGUE,JOHNNY Mejia
--- NOTE | 2016-12-15 08:43 | PN- Psychiatry ---
Assessment/Plan Impression: Identifying Info: 61-year-old male presents to [facility] emergency department on 12/11/2016 by ambulance intoxicated. At time of admission BAL 246 , detox positive for cannabis and cocaine. Admitted to medicine due to acute kidney injury. SUBJECTIVE Patient endorses some frustration regarding his kidney function not improving as quickly as he would like. No other new complaints today. Again declines psychotropics at this time. Brief ROS Gait: Not observed Sleep: Fair Appetite: Adequate OBJECTIVE Mental Status Exam Presentation/Appearance: Cooperative with evaluation. Hospital garb. Lying in bed Orientation: x3 Sensorium: Awake and alert Eye contact: Appropriate Affect: Somewhat blunted but congruent with stated mood Mood: "Okay" Depression: Endorses Anxiety: Endorses but improved Thought Content: - Denies SI/HI, AH/VH, PI. States and also believes they will not kill themselves. - Denies Hopeless/Helpless Thoughts Thought Process: Linear Associations: Appropriate Speech: WNL Judgment: Poor Insight: Poor Cognition: Memory: Grossly intact Attention/Concentration: Grossly intact Fund of Knowledge: Adequate Abstractions:Not asssessed MMSE: Not asssessed ASSESSMENT 61-year-old male presents unresponsive in the context of polysubstance intoxication. At present he continues to minimize use. Continues endorse problems with mood and anxiety but declines treatment for substance issues or psychopharmacological treatment. He is agreeable to considering individual therapy on an outpatient basis. Diagnosis Alcohol use disorder Rule out cocaine use disorder Rule out cannabis use disorder Unspecified mood disorder versus substance induced mood disorder A total of 30 minutes was spent with the patient with more than 50% of the time spent in counseling and/or coordination of care. Suggestion: 1. Continue CIWA, vitamin supplementation, Ativan taper. 2. The patient has been provided with a list of area individual therapists. He reports he will f/u once he returns from vacation. 3. Please include the following in patient discharge instructions, "If you would like to pursue medication or group therapy for treatment of mental health concerns please call [facility] at [phone] or [facility] at [phone] to arrange for an intake appointment." & "In an event of a psychiatric emergency call [phone], or go to nearest emergency department." Thank you for including psychiatry we will sign off. Reconsult as needed. Subjective Subjective: as above Objective Last 24 Hrs of Vital Signs/I&O Current Medications Sig/Jose Start time Last Medication Dose Route Stop Time Status Admin Acetaminophen 650 MG Q6P PRN 12/11 2230 AC PO Albuterol Sulfate 3 ML BID 12/12 1000 AC 12/15 INH 0829 Albuterol Sulfate 3 ML Q4P PRN 12/12 0815 AC INH Calcium Carbonate 500 MG ONCE ONE 12/14 2200 DC 12/14 PO 12/14 2201 2211 Clonidine 0.1 MG TID PRN 12/13 1045 AC 12/13 PO 1634 Folic Acid 1 MG DAILY 12/13 1000 AC 12/14 PO 1140 Heparin Sodium 5,000 UNIT Q8 12/12 1400 AC 12/15 (Porcine) SC 0633 Lorazepam 1 MG ONE ONE 12/15 0745 DC PO 12/15 0746 Lorazepam 1 MG BID 12/14 1800 CAN PO Lorazepam 1 MG BID 12/14 1800 DC 12/14 PO 1736 Lorazepam 1 MG Q12 12/14 1000 DC PO Lorazepam See Dose Q1P PRN 12/11 2230 AC Insts (1) IV Multivitamins 1 TAB DAILY 12/13 1000 AC 12/14 PO 1140 Omeprazole 40 MG DAILY AC 12/12 0700 AC 12/15 PO 0632 Patient Medication 1 ED .STK-MED ONE 12/14 1345 DC Teaching ED 12/14 1346 Polyethylene Glycol 17 GM DAILY 12/13 1000 AC PO Senna/Docusate Sodium 1 TAB BID 12/13 1000 AC 12/13 PO 2124 Sodium Chloride 1,000 ML Q13H 12/12 1000 AC 12/15 IV 0149 Thiamine HCl 100 MG DAILY 12/13 1000 AC 12/14 PO 1140 Dose Instructions: (1)Lorazepam: See Admin Criteria Laboratory Tests 12/15/16 0639: Anion Gap 8, Estimated GFR 39 L, BUN/Creatinine Ratio 11.7 Vital Signs Date Time Temp Pulse Resp B/P B/P Pulse O2 O2 Flow FiO2 Mean Ox Delivery Rate 12/15 0830 98 Room Air Room Air 12/15 0739 99.2 85 20 148/76 97 Room Air 12/14 2303 98.1 83 20 140/80 93 Room Air 12/14 1905 95 Room Air 12/14 1439 98.0 89 18 150/82 96 Room Air 12/14 1115 96.6 94 18 130/80 97 Room Air Intake & Output 12/15 1600 12/15 0800 12/15 0000 Intake Total 900 Output Total Balance 900 Intake, IV 500 Intake, Oral 400
--- NOTE | 2016-12-15 08:58 | PN- Housestaff ---
Subjective Follow-up For: Syncope/chest pain Alcohol abuse Acute kidney injury Subjective: This morning patient is very anxious to go home. He is going on vacation to [place] tomorrow. He denies any chest pain or discomfort or breathing difficulty. Review of Systems Constitutional: Reports: see HPI. Objective Last 24 Hrs of Vital Signs/I&O Vital Signs Date Time Temp Pulse Resp B/P B/P Pulse O2 O2 Flow FiO2 Mean Ox Delivery Rate 12/15 0830 98 Room Air Room Air 12/15 0739 99.2 85 20 148/76 97 Room Air 12/14 2303 98.1 83 20 140/80 93 Room Air 12/14 1905 95 Room Air 12/14 1439 98.0 89 18 150/82 96 Room Air 12/14 1115 96.6 94 18 130/80 97 Room Air Intake & Output 12/15 1600 12/15 0800 12/15 0000 Intake Total 900 Output Total Balance 900 Intake, IV 500 Intake, Oral 400 Physical Exam General Appearance: Alert, Oriented X3, Cooperative, No Acute Distress Neck: Supple Cardiovascular: Regular Rate Lungs: Clear to Auscultation Abdomen: Normal Bowel Sounds, Soft, No Tenderness Extremities: No Edema Current Medications: Current Medications Sig/Jose Start time Last Medication Dose Route Stop Time Status Admin Acetaminophen 650 MG Q6P PRN 12/11 2230 AC PO Albuterol Sulfate 3 ML BID 12/12 1000 AC 12/15 INH 0829 Albuterol Sulfate 3 ML Q4P PRN 12/12 0815 AC INH Calcium Carbonate 500 MG ONCE ONE 12/14 2200 DC 12/14 PO 12/14 2201 2211 Clonidine 0.1 MG TID PRN 12/13 1045 AC 12/13 PO 1634 Folic Acid 1 MG DAILY 12/13 1000 AC 12/14 PO 1140 Heparin Sodium 5,000 UNIT Q8 12/12 1400 AC 12/15 (Porcine) SC 0633 Lorazepam 1 MG ONE ONE 12/15 0745 DC PO 12/15 0746 Lorazepam 1 MG BID 12/14 1800 CAN PO Lorazepam 1 MG BID 12/14 1800 DC 12/14 PO 1736 Lorazepam 1 MG Q12 12/14 1000 DC PO Lorazepam See Dose Q1P PRN 12/11 2230 AC Insts (1) IV Multivitamins 1 TAB DAILY 12/13 1000 AC 12/14 PO 1140 Omeprazole 40 MG DAILY AC 12/12 0700 AC 12/15 PO 0632 Patient Medication 1 ED .[facility]-MED ONE 12/14 1345 DC Teaching ED 12/14 1346 Polyethylene Glycol 17 GM DAILY 12/13 1000 AC PO Senna/Docusate Sodium 1 TAB BID 12/13 1000 AC 12/13 PO 2124 Sodium Chloride 1,000 ML Q13H 12/12 1000 AC 12/15 IV 0149 Thiamine HCl 100 MG DAILY 12/13 1000 AC 12/14 PO 1140 Dose Instructions: (1)Lorazepam: See Admin Criteria Last 24 Hrs of Lab/[place] Results Last 24 Hrs of Labs/Mics: Laboratory Tests 12/15/16 0639: Anion Gap 8, Estimated GFR 39 L, BUN/Creatinine Ratio 11.7 Lines/Diet/Fluids Fluids/Infusions: NS at 75cc/hr Assessment/Plan Assessment: History 61-year-old man with past medical history of hypertension, COPD, colonic polyps and hemorrhoids. Problem list 1. Syncopal episode. Most likely due to alcohol and substance abuse vs ? cardiac 2. Chest pain. ? ACS. Negative EKGs and troponins 2. Stress test resting images normal. patient was unable to achieve an adequate heart rate response, significant myocardial ischemia during exercise cannot be ruled out. ECHO: stage 1 diastolic dysfunction. LVEF >55%. 3. Alcohol and substnace abuse. On CIWA protocol and Ativan (scheduled and PRN ). CIWA score 0 in last 48 hours 4. Acute kidney injury.This morning creatinine is 1.8. Renal ultrasound normal 5. History of colonic polyps and hemorrhoids. Colonoscopy every 3 years. Last colonoscopy on February 2016. 6. History of BRBPR. last 2 days prior to admission 7. History of anemia. 8. Aguilera's esophagus/ Mild erosive gastritis and nonerosive duodenitis. Next EGD in February 2017. 9. Hypertension. Lisinopril on hold because of acute kidney injury PLAN * Possible D/C today * Finishing Ativan taper today, Ativan 1 mg x 1 * Continue multivitamins/thiamine/folic acid on discharge * Follow-up PCP after discharge and repeat kidney functions * Avoid nephrotoxins * Encourage increased Oral Hydration * Continue holding Lisinopril because of a EL. ? Amlodipine upon DC * Continue PPI * Social work consult appreciated * Psych consult appreciated Problem List: 1. Alcohol intoxication 2. chest pain Pain Ratin Pain Location: none Pain Goal: Remain pain free Pain Plan: tylenol Tomorrow's Labs & Rationales: none DVT/Prophylaxis: pharmacological
[2016-12-15] MEDS ORDERED: AMLODIPINE BESYL5 M1 PO ×2 (10:14→11:05)
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
== END 2016-12-15 11:26 | DRG 774 ==
LOC: ERH 14:53 → GFPP OX 15:00 → ERHI 18:48 → 1NO 18:48 → ENRESERV 20:29 → ENTRNSPT 21:07 → EDTRNSPTSTS 21:13 → 1NO 21:19 → CMPTRNSPT 21:42 → 1NO 12-12 08:22
PROVIDERS: Emergency Medicine; Internal Medicine; ADMIT Internal Medicine
DX: F10.129 Alcohol abuse with intoxication, unspecified (principal); N17.9 Acute kidney failure, unspecified; E87.2 Acidosis; F14.10 Cocaine abuse, uncomplicated; I10 Essential (primary) hypertension; E78.5 Hyperlipidemia, unspecified; K21.9 Gastro-esophageal reflux disease without esophagitis; J44.9 Chronic obstructive pulmonary disease, unspecified; R07.9 Chest pain, unspecified; Y90.8 Blood alcohol level of 240 mg/100 ml or more; K29.70 Gastritis, unspecified, without bleeding; K22.70 Barrett's esophagus without dysplasia; K29.80 Duodenitis without bleeding; Z87.891 Personal history of nicotine dependence
CPT/HCPCS: 1NP; 84133; 84300; 36415; 76775; 78452; 80307; 81001; 82436; 82570; 93005; 93010; 93016; 93017; 93306; 96374; 99291; A9502; G0480; J1644; J2310; J3490; J7060

== ENCOUNTER 2017-11-15 16:31 | Emergency (ER) | payer OTHER ==
[~2017-11-15] VITALS: Ht 170.2 cm; Wt 70.3 kg
[~2017-11-15 16:31] MED LIST changes: +AMLODIPINE BESYL5 M1 PO; +BACTRIM 400-801 EACH PO; +DIOVAN160 MG PO; +FERROUS SULFAT325 M2 PO; +FOLIC ACID1 M1 PO; +LISINOPRIL20 M1 PO; +ONE DAILY MULT1 EAC2 PO; +PANTOPRAZOLE SO40 M1 PO; +PREDNISONE20 M1 PO; +PROAIR HFA8.5 GM INH; +SODIUM BICARBO325 M1 PO; +TAMSULOSIN HCL0.4 M1 PO; +VITAMIN B-1100 MG PO
[2017-11-15 17:04] LABS: ABSOLUTE BASOPHIL COUNT 0 /CUMM (0.0-0.2); ABSOLUTE EOSINOPHIL COUNT 0 /CUMM (0.0-0.7); ABSOLUTE GRANULOCYTE CT 4.4 /CUMM (1.4-6.5); ABSOLUTE LYMPH COUNT 0.5 /CUMM (1.2-3.4); ABSOLUTE MONOCYTE COUNT 0.4 /CUMM (0.10-0.60); BASOPHIL % 0.5 % (0.0-2.0); EOSINOPHIL % 0.4 % (0-5); GRANULOCYTE % 81.9 % (42.2-75.2); HEMATOCRIT 28.9 % (42-52); MEAN CORPUSCULAR HGB 31.5 PG (27.0-31.0); MEAN CORPUSCULAR HGB CONC 34.5 G/DL (33.0-37.0); MEAN CORPUSCULAR VOLUME 91.5 FL (80.0-94.0); MEAN PLATELET VOLUME 7.5 FL (7.4-10.4); PLATELET COUNT 198 /CUMM (130-400); RED BLOOD CELL CT 3.16 /CUMM (4.70-6.10); WHITE BLOOD CELL COUNT 5.4 /CUMM (4.8-10.8)
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
[2017-11-15 19:06] VITALS: BP 168/74
== END 2017-11-15 19:30 | disposition short-term general hospital (02) ==
LOC: ERH 16:31
PROVIDERS: Student in an Organized Health Care Education/Training Program
DX: S09.93XA Unspecified injury of face, initial encounter (principal); Y04.8XXA Assault by other bodily force, initial encounter; Y92.009 Unspecified place in unspecified non-institutional (private) residence as the place of occurrence of the external cause; Y93.9 Activity, unspecified
CPT/HCPCS: 90471; 90714; G0480; J3101